=== PATIENT | female | born 1970 | race African-American/Black ===

== ENCOUNTER 2016-06-27 10:57 | Emergency (ER) | payer MEDICAID, OTHER ==
[~2016-06-27] VITALS: Ht 167.6 cm; Wt 82.1 kg
[~2016-06-27 10:57] MED LIST: LISI10TA6; METF-312
[2016-06-27 11:27] VITALS: BP 164/78
== END 2016-06-27 13:25 | disposition left against medical advice (07) ==
LOC: ER 10:57
DX: R10.9 Unspecified abdominal pain (principal); Z53.21 Procedure and treatment not carried out due to patient leaving prior to being seen by health care provider

== ENCOUNTER 2017-05-25 16:02 | Emergency (ER) | payer MEDICAID ==
[~2017-05-25] VITALS: Ht 167.6 cm; Wt 95.3 kg
[~2017-05-25 16:02] MED LIST changes: -METF-312; +METF-370
[2017-05-25 17:13] LABS: BUN/Creatinine Ratio 14.7; Potassium 4.3 mmol/L (3.5-5.1)
[2017-05-25 17:14] LABS: Albumin 2.5 g/dL (3.4-5.0); Calcium 8.6 mg/dL (8.5-10.1)
[2017-05-25 17:15] LABS: Bilirubin, Total 0.2 mg/dL (0.2-1.0); Total Protein 7.2 g/dL (6.4-8.2)
[2017-05-25 17:22] LABS: Basophils # (auto) 0.1 uL; Eosinophils # (auto) 0.1 uL; Hemoglobin 9.2 g/dL (12.2-16.2); Mean Corpuscular Hemoglobin 19.2 pg (28.0-32.0); Monocytes # (auto) 0.6 uL
[2017-05-25 17:23] LABS: Basophils % (auto) 0.6 % (0.0-2.0); Eosinophils % (auto) 1.6 % (0.0-7.0); Hematocrit 29.6 % (36.0-46.0); Lymphocytes # (auto) 2.5 uL; Lymphocytes % (auto) 28.5 % (10.0-50.0); Monocytes % (auto) 6.9 % (0.0-12.0); Neutrophils # (auto) 5.6 uL; Neutrophils % (auto) 62.4 % (37.0-80.0); Nucleated Red Blood Cells % 0.1 %; Platelet Count (auto) 432 10^3/uL (140-450); Red Blood Cells 4.77 10^6/uL (4.0-5.20); White Blood Cell 8.9 10^3/uL (4.4-10.8)
[2017-05-25 17:31] LABS: Red Cell Distribution Width 33.1 % (11.8-14.3)
[2017-05-25] MEDS ORDERED: InsuLIN REG 1unit/0.01ml Soln (100units/ml) IV ONE (21:30)
[2017-05-25] MEDS ORDERED: SODIUM CHLORIDE 0.9% 1,000 ML IV ONE (21:30)
[2017-05-25 23:15] VITALS: BP 150/80
== END 2017-05-26 01:27 | disposition home or self-care (01) ==
LOC: ER 16:02
DX: E11.42 Type 2 diabetes mellitus with diabetic polyneuropathy (principal); E11.65 Type 2 diabetes mellitus with hyperglycemia; M79.605 Pain in left leg; M79.604 Pain in right leg; Z79.899 Other long term (current) drug therapy; I10 Essential (primary) hypertension
CPT/HCPCS: 36415; 71045; 80053; 82962; 83735; 83880; 84443; 84484; 84702; 85025; 93005; 96361; 96374; 99285; J1815; J7030

== ENCOUNTER 2017-12-31 10:58 | Emergency (ER) | payer MEDICAID ==
[~2017-12-31] VITALS: Ht 167.6 cm; Wt 89.8 kg
[2017-12-31 11:04] VITALS: BP 181/91
[2017-12-31] MEDS ORDERED: KETOROLAC TROMETH 60MG/2ML VIAL IM ONE (13:30)
== END 2017-12-31 13:50 | disposition home or self-care (01) ==
LOC: ER 10:58
DX: G44.209 Tension-type headache, unspecified, not intractable (principal); E11.9 Type 2 diabetes mellitus without complications; I10 Essential (primary) hypertension
CPT/HCPCS: 70450; 96372; 99284; J1885

== ENCOUNTER 2020-09-06 18:43 | Emergency (ER) | payer MEDICAID ==
[~2020-09-06] VITALS: Ht 167.6 cm; Wt 87.1 kg
[~2020-09-06 18:43] MED LIST changes: +LISI-716; -LISI10TA6
[2020-09-06 20:46] VITALS: BP 143/70
[2020-09-06] MEDS ORDERED: NEOMYCIN-BACITRACIN-POLYM UNITDOSE PKG TOP OINT TOP ONE (21:30)
[2020-09-06] MEDS ORDERED: TETANUS-DIPTH-ACEL PERTUSSIS 0.5ML SYR Tdap IM ONE (21:30)
[2020-09-06] MEDS ORDERED: LIDOCAINE 1% HCL (LOCAL ANESTH.) INJ 20ML MDV ONE (21:38)
[2020-09-06] MEDS ORDERED: LIDOCAINE 1% HCL (LOCAL ANESTH.) INJ 20ML MDV ID ONE (21:45)
== END 2020-09-06 22:15 | disposition home or self-care (01) ==
LOC: ER 18:43
DX: S61.012A Laceration without foreign body of left thumb without damage to nail, initial encounter (principal); E11.9 Type 2 diabetes mellitus without complications; I10 Essential (primary) hypertension; Z79.899 Other long term (current) drug therapy; W26.8XXA Contact with other sharp object(s), not elsewhere classified, initial encounter; Y93.89 Activity, other specified; Y92.89 Other specified places as the place of occurrence of the external cause; Y99.8 Other external cause status
CPT/HCPCS: 12002; 90471; 90715; 99283; J2001

== ENCOUNTER 2020-09-13 14:00 | Emergency (ER) | payer MEDICAID ==
[~2020-09-13] VITALS: Ht 167.6 cm; Wt 88.9 kg
[2020-09-13 14:04] VITALS: BP 122/68
== END 2020-09-13 15:30 | disposition left against medical advice (07) ==
LOC: ER 14:00
DX: Z48.01 Encounter for change or removal of surgical wound dressing (principal); Z53.21 Procedure and treatment not carried out due to patient leaving prior to being seen by health care provider

== ENCOUNTER 2023-11-13 14:43 | Inpatient (IN) | payer MEDICAID, OTHER ==
[~2023-11-13] VITALS: Ht 165.1 cm; Wt 95.3 kg
[~2023-11-13 14:43] MED LIST changes: -LISI-716; +LISI10TA34
[2023-11-13 16:00] VITALS: PULSE 76; RESP 19; O2SAT 96
[2023-11-13 16:02] LABS: Eosinophils # (auto) 0.1 10 ^3/uL (0-0.8); Nucleated Red Blood Cells % 0.1 %; White Blood Cell 5.7 10^3/uL (4.4-10.8)
[2023-11-13 16:04] LABS: Basophils # (auto) 0 10 ^3/uL (0-0.2); Basophils % (auto) 0.5 % (0.0-2.0); Eosinophils % (auto) 1.7 % (0.0-7.0); Lymphocytes # (auto) 0.4 10 ^3/uL (0.4-5.4); Lymphocytes % (auto) 6.8 % (10.0-50.0); Mean Corpuscular Hemoglobin 24.8 pg (28.0-32.0); Mean Corpuscular Hgb Conc. 32.1 g/dL (32.0-36.0); Mean Corpuscular Volume 77.2 fL (80.0-100.0); Monocytes # (auto) 0.5 10 ^3/uL (0-1.3); Monocytes % (auto) 8.9 % (0.0-12.0); Neutrophils # (auto) 4.7 10 ^3/uL (1.6-8.6); Neutrophils % (auto) 82.1 % (37.0-80.0); Platelet Count (auto) 254 10^3/uL (140-450); Red Blood Cells 3.24 10^6/uL (4.0-5.20); Red Cell Distribution Width 17.1 % (11.8-14.3)
[2023-11-13 16:26] LABS: Alanine Aminotransferase 16 U/L (7-40); Albumin 3.2 g/dL (3.2-4.8); Alkaline Phosphatase 63 U/L (46-116); Anion Gap 15 (5-15); Aspartate Aminotransferase 20 U/L (13-40); BUN/Creatinine Ratio 6.3 (10.0-20.0); Bilirubin, Total 0.2 mg/dL (0.2-1.0); Blood Urea Nitrogen 66 mg/dL (9-23); Calcium 7.1 mg/dL (8.7-10.4); Carbon Dioxide 13 mmol/L (20-30); Chloride 112 mmol/L (98-107); Glucose 58 mg/dL (74-106); Potassium 4.5 mmol/L (3.5-5.1); Sodium 140 mmol/L (136-145); Total Protein 5.5 g/dL (5.7-8.2)
[2023-11-13] MEDS: hydrALAZINE HCL 20 MG/ML VL IV ONE (17:02)
[2023-11-13] MEDS: ONDANSETRON HCL 4 MG/2 ML VIAL IV ONE (17:04)
[2023-11-13] MEDS: MORPHINE SULFATE 4 MG/ML SYR/VIAL IV ONE (17:04)
[2023-11-13] MEDS: DEXTROSE (50%) 50ML SYRG IV ONE (18:34)
[2023-11-13] MEDS: ASPirin 325 MG TAB PO ONE (19:51)
[2023-11-13 19:57] VITALS: PULSE 74; RESP 20; O2SAT 94
[2023-11-13] MEDS: ACCU-CHEK COMFORT CURVE STRIP VI SCH (22:00)
[2023-11-13] MEDS: InsuLIN REG 1unit/0.01ml Soln (100units/ml) SC SCH (22:00)
[2023-11-13] MEDS: ATORVASTATIN 20 MG TAB PO SCH (22:33)
[2023-11-14] VITALS (7 sets, daily range): BP systolic 145–159; BP diastolic 52–86; PULSE 58–95; RESP 16–20; TEMP 98.3–98.8; O2SAT 94–99
[2023-11-14] MEDS: DEXTROSE (50%) 50ML SYRG IV PRN (02:09)
[2023-11-14] MEDS ORDERED: GLUC0.8I2 IJ (05:50)
[2023-11-14] MEDS ORDERED: METH5TAB98 PO (05:50)
[2023-11-14] MEDS ORDERED: ERTU5TAB PO (05:50)
[2023-11-14 05:53] LABS: Anion Gap 12 (5-15); Calcium 6.1 mg/dL (8.7-10.4); Carbon Dioxide 12 mmol/L (20-30); Chloride 116 mmol/L (98-107); Potassium 4.2 mmol/L (3.5-5.1); Sodium 140 mmol/L (136-145)
[2023-11-14 05:59] LABS: BUN/Creatinine Ratio 4.6 (10.0-20.0); Glucose 68 mg/dL (74-106)
[2023-11-14 06:38] LABS: Blood Urea Nitrogen 45 mg/dL (9-23)
[2023-11-14] MEDS: ASPirin 81 mg TAB PO SCH (11:09)
[2023-11-14] MEDS: amLODIPine BESYLATE 5 MG TAB PO SCH (11:10)
[2023-11-14] MEDS: ATENOLOL 25 MG TAB PO SCH (11:11)
[2023-11-14] MEDS: methIMAzole 5 MG TAB PO SCH (12:51)
[2023-11-14] MEDS: FUROSEMIDE 40 MG/4 ML VIAL IV ONE (12:52)
[2023-11-14 14:21] LABS: Magnesium 1.6 mg/dL (1.6-2.6)
[2023-11-14 14:22] LABS: Phosphorus 7.7 mg/dL (2.4-5.1)
[2023-11-14 14:49] LABS: INR 0.96 (0.9-1.15); Prothrombin Time 10.2 sec (9.3-11.8)
[2023-11-14] MEDS: HYDROcodone-ACET 5/325MG TAB PO PRN (20:54)
[2023-11-15 02:22] VITALS: BP 103/47; PULSE 60; RESP 16; TEMP 97.8; O2SAT 90
[2023-11-15 05:00] VITALS: BP 146/62; PULSE 60; RESP 20; TEMP 98.6; O2SAT 99
[2023-11-15 07:29] LABS: Alanine Aminotransferase 14 U/L (7-40); Albumin 2.8 g/dL (3.2-4.8); Alkaline Phosphatase 56 U/L (46-116); Anion Gap 12 (5-15); Aspartate Aminotransferase 15 U/L (13-40); BUN/Creatinine Ratio 5.6 (10.0-20.0); Bilirubin, Total < 0.2 mg/dL (0.2-1.0); Calcium 6.2 mg/dL (8.7-10.4); Carbon Dioxide 15 mmol/L (20-30); Chloride 113 mmol/L (98-107); Magnesium 1.7 mg/dL (1.6-2.6); Potassium 4.8 mmol/L (3.5-5.1); Sodium 140 mmol/L (136-145); Total Protein 4.9 g/dL (5.7-8.2)
[2023-11-15 07:35] LABS: Blood Urea Nitrogen 64 mg/dL (9-23)
[2023-11-15 07:38] LABS: Glucose 49 mg/dL (74-106)
[2023-11-15 08:04] LABS: Hemoglobin 7.2 g/dL (12.2-16.2); Red Blood Cells 2.89 10^6/uL (4.0-5.20)
[2023-11-15 08:06] LABS: Hematocrit 22.2 % (36.0-46.0); Mean Corpuscular Hgb Conc. 32.6 g/dL (32.0-36.0); Mean Corpuscular Volume 76.8 fL (80.0-100.0); Platelet Count (auto) 202 10^3/uL (140-450); White Blood Cell 4.9 10^3/uL (4.4-10.8)
[2023-11-15 08:10] LABS: Band Neutrophils % (manual) 0; Basophils % (manual) 0 (0.0-2.0); Blast Cells 0; Metamyelocytes % 0; Myelocytes % 0; Promyelocytes % 0; Reactive Lymphocytes 0
[2023-11-15 08:45] LABS: Eosinophils % (manual) 2 (0-7); Lymphocytes % (manual) 23 (10.0-50.0); Monocytes % (manual) 7 (0-12)
[2023-11-15 08:46] LABS: Anisocytosis Slight; Macrocytosis Slight; Ovalocytes FEW; Platelet Estimate Adequate
[2023-11-15] MEDS: CALCIUM ACETATE 667 MG CAP PO SCH ×2 (12:38→17:40)
[2023-11-15 12:59] LABS: Urine Bacteria None Seen /hpf (None Seen); Urine WBC None Seen /hpf (0 - 5)
[2023-11-15 13:00] VITALS: BP 142/59; PULSE 65; RESP 19; TEMP 99; O2SAT 94
[2023-11-15 13:20] LABS: Urine Blood 1+ /uL (Negative); Urine Color Light-Yellow (Yellow); Urine Hyaline Cast FEW /lpf (0 - 2); Urine Protein, UAD 3+ (Negative); Urine Specific Gravity 1.018 (1.001-1.035); Urine Urobilinogen Normal (Negative); Urine pH 6.5 (5.0-9.0)
[2023-11-15 13:23] LABS: Urine Clarity CLEAR (Clear)
[2023-11-15 13:32] LABS: Creatinine, Urine 110.76 mg/dL (30.0-125.0)
[2023-11-15 13:35] LABS: Protein, Urine 1410.7 mg/dL (0.0-11.9); Urine Protein/Creatinine Ratio 12.74
[2023-11-15 17:00] VITALS: BP 132/54; PULSE 61; RESP 20; O2SAT 95
[2023-11-15 20:00] VITALS: PULSE 59
[2023-11-15 21:00] VITALS: BP 132/45; PULSE 61; RESP 20; TEMP 98.2; O2SAT 96
[2023-11-16] VITALS (8 sets, daily range): BP systolic 128–147; BP diastolic 49–68; PULSE 56–65; RESP 16–20; TEMP 97.6–98.1; O2SAT 94–99
[2023-11-16 06:41] LABS: Alanine Aminotransferase 15 U/L (7-40); Alkaline Phosphatase 59 U/L (46-116); Anion Gap 13 (5-15); BUN/Creatinine Ratio 5.4 (10.0-20.0); Blood Urea Nitrogen 64 mg/dL (9-23); Calcium 6.4 mg/dL (8.7-10.4); Carbon Dioxide 14 mmol/L (20-30); Chloride 113 mmol/L (98-107); Glucose 67 mg/dL (74-106); Magnesium 1.7 mg/dL (1.6-2.6); Potassium 4.9 mmol/L (3.5-5.1); Sodium 140 mmol/L (136-145)
[2023-11-16 06:42] LABS: Albumin 2.9 g/dL (3.2-4.8); Aspartate Aminotransferase 15 U/L (13-40); Bilirubin, Total 0.2 mg/dL (0.2-1.0); Total Protein 5.2 g/dL (5.7-8.2)
[2023-11-16 07:14] LABS: Basophils # (auto) 0.1 10 ^3/uL (0-0.2); Monocytes # (auto) 0.5 10 ^3/uL (0-1.3)
[2023-11-16 07:16] LABS: Basophils % (auto) 1.3 % (0.0-2.0); Eosinophils # (auto) 0.3 10 ^3/uL (0-0.8); Eosinophils % (auto) 5.7 % (0.0-7.0); Hematocrit 23.6 % (36.0-46.0); Hemoglobin 7.7 g/dL (12.2-16.2); Lymphocytes # (auto) 0.6 10 ^3/uL (0.4-5.4); Lymphocytes % (auto) 11.1 % (10.0-50.0); Mean Corpuscular Hemoglobin 25.2 pg (28.0-32.0); Mean Corpuscular Hgb Conc. 32.4 g/dL (32.0-36.0); Mean Corpuscular Volume 77.6 fL (80.0-100.0); Monocytes % (auto) 9.9 % (0.0-12.0); Neutrophils # (auto) 3.9 10 ^3/uL (1.6-8.6); Nucleated Red Blood Cells % 0.2 %; Platelet Count (auto) 230 10^3/uL (140-450); Red Blood Cells 3.04 10^6/uL (4.0-5.20); Red Cell Distribution Width 17.5 % (11.8-14.3); White Blood Cell 5.4 10^3/uL (4.4-10.8)
[2023-11-16 08:58] LABS: Hepatitis B Surface Antigen Negative (Negative)
[2023-11-16 09:19] LABS: Hepatitis C Antibody Negative (Negative)
[2023-11-16] MEDS: IRON SUCROSE COMPLEX 100 ML IV SCH (11:24)
[2023-11-17] VITALS (12 sets, daily range): BP systolic 124–161; BP diastolic 54–82; PULSE 57–63; RESP 11–18; TEMP 97–98.5; O2SAT 95–100
[2023-11-17] MEDS: hydrALAZINE HCL 20 MG/ML VL IV PRN (05:28)
[2023-11-17 06:37] LABS: Alanine Aminotransferase 14 U/L (7-40); Albumin 2.8 g/dL (3.2-4.8); Alkaline Phosphatase 60 U/L (46-116); Anion Gap 14 (5-15); Aspartate Aminotransferase 12 U/L (13-40); BUN/Creatinine Ratio 5.3 (10.0-20.0); Blood Urea Nitrogen 65 mg/dL (9-23); Calcium 6.4 mg/dL (8.7-10.4); Carbon Dioxide 14 mmol/L (20-30); Chloride 113 mmol/L (98-107); Glucose 66 mg/dL (74-106); Magnesium 1.8 mg/dL (1.6-2.6); Potassium 5.2 mmol/L (3.5-5.1); Sodium 141 mmol/L (136-145)
[2023-11-17 06:38] LABS: Bilirubin, Total 0.2 mg/dL (0.2-1.0)
[2023-11-17] MEDS: HEPARIN SODIUM (PORCINE) 5000 UNITS/ML 1ML VIAL ONE (13:31)
[2023-11-17] MEDS: fentaNYL CITRATE 100 MCG/2 ML VL ONE (13:31)
[2023-11-17] MEDS: LIDOCAINE 2%HCL (LOCAL ANESTH.) INJ 20ML MDV ONE (13:32)
[2023-11-17] MEDS: MIDAZOLAM HCL 2MG/2ML 2ml VIAL (1mg/ml) ONE (13:32)
[2023-11-17] MEDS: ceFAZolin 1GM/50ML 50 ML IV ONE (13:56)
[2023-11-18] VITALS (8 sets, daily range): BP systolic 114–184; BP diastolic 51–80; PULSE 57–74; RESP 14–20; TEMP 97.1–98.6; O2SAT 95–98
[2023-11-18] MEDS ORDERED: SODIUM CHL 0.9% 1000 ML BAG XX ONE (10:15)
[2023-11-19 05:00] VITALS: BP 141/48; PULSE 64; RESP 20; TEMP 98.4; O2SAT 96
[2023-11-19 08:00] VITALS: PULSE 60; PULSE 64; RESP 16; O2SAT 97
[2023-11-19 11:43] VITALS: BP 151/59; PULSE 65; RESP 18; TEMP 97.8; O2SAT 96
[2023-11-19 17:00] VITALS: BP 149/71; PULSE 66; RESP 95; TEMP 97.9; O2SAT 95
[2023-11-19 20:00] VITALS: PULSE 66; PULSE 67; RESP 17; O2SAT 97
[2023-11-19 21:00] VITALS: BP 152/77; PULSE 66; RESP 17; TEMP 97.7; O2SAT 97
[2023-11-20] VITALS (8 sets, daily range): BP systolic 125–188; BP diastolic 56–81; PULSE 57–98; RESP 16–18; TEMP 97.3–97.8; O2SAT 63–100
[2023-11-20 07:17] LABS: Albumin 2.7 g/dL (3.2-4.8); Alkaline Phosphatase 59 U/L (46-116); Anion Gap 9 (5-15); Aspartate Aminotransferase 15 U/L (13-40); BUN/Creatinine Ratio 3.7 (10.0-20.0); Bilirubin, Total 0.2 mg/dL (0.2-1.0); Blood Urea Nitrogen 38 mg/dL (9-23); Calcium 7.1 mg/dL (8.7-10.4); Carbon Dioxide 16 mmol/L (20-31); Chloride 111 mmol/L (98-107); Glucose 72 mg/dL (74-106); Potassium 4.8 mmol/L (3.5-5.1)
[2023-11-20 07:18] LABS: Total Protein 4.9 g/dL (5.7-8.2)
[2023-11-20 07:24] LABS: Alanine Aminotransferase < 9 U/L (7-40); Sodium 136 mmol/L (136-145)
[2023-11-20 10:07] LABS: Hematocrit 26.5 % (36.0-46.0); Hemoglobin 8.4 g/dL (12.2-16.2); Mean Corpuscular Hemoglobin 24.4 pg (28.0-32.0); Mean Corpuscular Hgb Conc. 31.7 g/dL (32.0-36.0); Mean Corpuscular Volume 77.2 fL (80.0-100.0); Platelet Count (auto) 246 10^3/uL (140-450); Red Blood Cells 3.44 10^6/uL (4.0-5.20); Red Cell Distribution Width 16.9 % (11.8-14.3); White Blood Cell 6.6 10^3/uL (4.4-10.8)
[2023-11-20 10:10] LABS: Basophils % (manual) 0 (0.0-2.0); Blast Cells 0; Metamyelocytes % 0; Myelocytes % 0; Promyelocytes % 0; Reactive Lymphocytes 0
[2023-11-20 11:51] LABS: Band Neutrophils % (manual) 1; Eosinophils % (manual) 2 (0-7); Lymphocytes % (manual) 17 (10.0-50.0); Monocytes % (manual) 9 (0-12); Platelet Estimate Adequate
[2023-11-20 11:52] LABS: Hypochromia Slight
[2023-11-20] MEDS: EPOETIN ALFA-EPBX 10,000 UNIT/1ML VIAL SC ONE (21:18)
[2023-11-21] VITALS (8 sets, daily range): BP systolic 119–169; BP diastolic 58–86; PULSE 62–98; RESP 18–21; TEMP 97.6–98.7; O2SAT 88–100
[2023-11-22] VITALS (8 sets, daily range): BP systolic 112–162; BP diastolic 56–85; PULSE 57–75; RESP 16–20; TEMP 97.2–98.2; O2SAT 94–99
[2023-11-22 08:22] LABS: Alanine Aminotransferase 10 U/L (7-40); Albumin 3.3 g/dL (3.2-4.8); Alkaline Phosphatase 69 U/L (46-116); Anion Gap 12 (5-15); Aspartate Aminotransferase 21 U/L (13-40); BUN/Creatinine Ratio 3.7 (10.0-20.0); Blood Urea Nitrogen 28 mg/dL (9-23); Calcium 7.9 mg/dL (8.7-10.4); Carbon Dioxide 22 mmol/L (20-31); Chloride 104 mmol/L (98-107); Glucose 85 mg/dL (74-106); Potassium 4.3 mmol/L (3.5-5.1); Sodium 138 mmol/L (136-145)
[2023-11-22 08:23] LABS: Bilirubin, Total 0.2 mg/dL (0.2-1.0); Total Protein 5.8 g/dL (5.7-8.2)
[2023-11-23] VITALS (8 sets, daily range): BP systolic 139–165; BP diastolic 52–70; PULSE 58–65; RESP 16–20; TEMP 97.2–98.3; O2SAT 96–99
[2023-11-23 07:10] LABS: Eosinophils # (auto) 0.2 10 ^3/uL (0-0.8); Hemoglobin 7.4 g/dL (12.2-16.2); Monocytes # (auto) 0.6 10 ^3/uL (0-1.3); Nucleated Red Blood Cells % 0.7 %
[2023-11-23 07:17] LABS: Basophils # (auto) 0.1 10 ^3/uL (0-0.2); Basophils % (auto) 0.9 % (0.0-2.0); Hematocrit 22.8 % (36.0-46.0); Lymphocytes % (auto) 32.6 % (10.0-50.0); Mean Corpuscular Hemoglobin 25.1 pg (28.0-32.0); Mean Corpuscular Hgb Conc. 32.2 g/dL (32.0-36.0); Mean Corpuscular Volume 77.8 fL (80.0-100.0); Monocytes % (auto) 9.5 % (0.0-12.0); Neutrophils # (auto) 3.2 10 ^3/uL (1.6-8.6); Platelet Count (auto) 189 10^3/uL (140-450); Red Blood Cells 2.93 10^6/uL (4.0-5.20); Red Cell Distribution Width 16.6 % (11.8-14.3)
[2023-11-23 07:27] LABS: Calcium 7.4 mg/dL (8.7-10.4); Chloride 106 mmol/L (98-107); Potassium 3.8 mmol/L (3.5-5.1); Sodium 138 mmol/L (136-145)
[2023-11-23 07:28] LABS: Anion Gap 8 (5-15); Carbon Dioxide 24 mmol/L (20-31)
[2023-11-23 07:33] LABS: BUN/Creatinine Ratio 3.9 (10.0-20.0); Blood Urea Nitrogen 33 mg/dL (9-23); Glucose 108 mg/dL (74-106)
[2023-11-23] MEDS: IRON SUCROSE COMPLEX 100 ML IV SCH (16:51)
[2023-11-23] MEDS: FUROSEMIDE 20 MG TAB PO SCH (16:58)
[2023-11-24] VITALS (9 sets, daily range): BP systolic 141–185; BP diastolic 34–87; PULSE 58–68; RESP 16–20; TEMP 97.7–98; O2SAT 96–99
[2023-11-24 05:58] LABS: Hematocrit 23.1 % (36.0-46.0); Hemoglobin 7.3 g/dL (12.2-16.2)
[2023-11-24] MEDS: SODIUM CHL 0.9% 1000 ML BAG XX ONE (09:10)
[2023-11-24] MEDS: EPOETIN ALFA-EPBX 10,000 UNIT/1ML VIAL SC ONE (21:32)
[2023-11-25] VITALS (8 sets, daily range): BP systolic 134–158; BP diastolic 38–67; PULSE 60–65; RESP 16–18; TEMP 97.6–98.1; O2SAT 94–99
[2023-11-26] VITALS (7 sets, daily range): BP systolic 137–151; BP diastolic 44–94; PULSE 63–71; RESP 18–20; TEMP 97.5–98.1; O2SAT 93–96
[2023-11-26 06:20] LABS: Chloride 105 mmol/L (98-107); Potassium 3.8 mmol/L (3.5-5.1); Sodium 140 mmol/L (136-145)
[2023-11-26 06:21] LABS: Anion Gap 10 (5-15); Calcium 7.9 mg/dL (8.7-10.4); Carbon Dioxide 25 mmol/L (20-31)
[2023-11-26 06:26] LABS: BUN/Creatinine Ratio 3.1 (10.0-20.0); Blood Urea Nitrogen 22 mg/dL (9-23); Glucose 91 mg/dL (74-106)
[2023-11-26] MEDS: SODIUM CHL 0.9% 1000 ML BAG XX ONE (06:41)
[2023-11-26 09:14] LABS: Hepatitis B Surface Antigen Negative (Negative)
[2023-11-26 09:36] LABS: Hepatitis A Ab IgM Negative; Hepatitis B Core IgM Negative
[2023-11-26 09:37] LABS: Hepatitis C Antibody Negative (Negative)
[2023-11-26] MEDS: EPOETIN ALFA-EPBX 10,000 UNIT/1ML VIAL SC ONE ×2 (21:00→21:12)
[2023-11-27] VITALS (7 sets, daily range): BP systolic 132–166; BP diastolic 50–76; PULSE 60–65; RESP 18–20; TEMP 97.6–98.1; O2SAT 95–99
[2023-11-27] MEDS: CALCIUM ACETATE 667 MG CAP PO SCH (08:30)
[2023-11-27] MEDS: ERGOCALCIFEROL 50,000 UNIT(1.25MG) CAP PO SCH (12:43)
[2023-11-27] MEDS: CALCITRIOL 0.25 MCG CAP PO SCH (12:43)
[2023-11-27] MEDS ORDERED: METH5TAB98 PO (15:17)
[2023-11-27] MEDS ORDERED: ASPI-325 PO (15:17)
[2023-11-27] MEDS ORDERED: ATEN25TA PO (15:17)
[2023-11-27] MEDS ORDERED: ATOR20TA50 PO (15:17)
[2023-11-27] MEDS ORDERED: AML5T PO (15:17)
[2023-11-27] MEDS ORDERED: CALC667C PO (15:19)
[2023-11-28 01:00] VITALS: BP 147/63; PULSE 60; RESP 18; TEMP 98.1; O2SAT 98
[2023-11-28 05:00] VITALS: BP 163/79; PULSE 62; RESP 18; TEMP 97.8; O2SAT 97
[2023-11-28] MEDS ORDERED: SODIUM CHL 0.9% 1000 ML BAG XX ONE (07:00)
[2023-11-28 08:40] VITALS: BP 162/64; PULSE 65; RESP 20; TEMP 98.4; O2SAT 100
[2023-11-28 12:40] VITALS: BP 137/60; PULSE 56; RESP 18; TEMP 97.6; O2SAT 94
[2023-11-28 15:00] VITALS: BP 150/46; PULSE 61; RESP 18; TEMP 98.3; O2SAT 95
[2023-11-28] MEDS: SODIUM FERR GLUC 62.5MG/5ML 110 ML IV SCH (17:57)
[2023-11-28 21:25] VITALS: BP 151/55; PULSE 63; RESP 14; TEMP 97.8; O2SAT 97
[2023-11-29 00:23] VITALS: BP 165/69; PULSE 58; RESP 14; TEMP 98; O2SAT 98
[2023-11-29 04:49] VITALS: BP_SYST 117; BP_SYST 152; BP_DIAS 61; BP_DIAS 82; PULSE 63; PULSE 68; RESP 14; RESP 15; TEMP 97.8; TEMP 98.3; O2SAT 95; O2SAT 96
[2023-11-29] MEDS: EPOETIN ALFA-EPBX 10,000 UNIT/1ML VIAL SC ONE (06:11)
[2023-11-29 09:00] VITALS: BP 175/69; PULSE 70; RESP 18; TEMP 98.6; O2SAT 96
[2023-11-29 13:00] VITALS: BP 157/71; PULSE 74; RESP 20; TEMP 98.9; O2SAT 96
[2023-11-29] MEDS: HYDROcodone-ACET 10/325MG TAB PO PRN (13:40)
[2023-11-29 16:43] VITALS: BP 152/78; PULSE 72; RESP 18; TEMP 98.7; O2SAT 100
[2023-11-29] MEDS: ONDANSETRON HCL 4 MG/2 ML VIAL IV PRN (17:14)
[2023-11-29 21:00] VITALS: BP 135/65; PULSE 75; RESP 18; TEMP 98; O2SAT 98
[2023-11-30 01:00] VITALS: BP_SYST 136; BP_SYST 140; BP_DIAS 57; BP_DIAS 65; PULSE 65; PULSE 75; RESP 18; TEMP 98; TEMP 99.3; O2SAT 97; O2SAT 98
[2023-11-30 05:00] VITALS: BP 132/53; PULSE 70; RESP 17; TEMP 99.3; O2SAT 98
[2023-11-30 08:00] VITALS: BP 161/63; PULSE 71; RESP 20; TEMP 97.8; O2SAT 97
[2023-11-30 12:00] VITALS: BP 124/56; PULSE 61; RESP 18; TEMP 98; O2SAT 95
[2023-11-30 13:46] VITALS: BP 161/63; PULSE 70; TEMP 36.6
[2023-12-01 08:06] LABS: Complement C3 84 mg/dL (82-167)
[2023-12-01 13:07] LABS: Anti-Centromere B Antibody <0.2 AI (0.0-0.9); Anti-Jo-1 Antibody <0.2 AI (0.0-0.9); Anti-dsDNA Antibody <1 IU/mL (0-9); Antichromatin Antibody <0.2 AI (0.0-0.9); Antiscleroderma-70 Antibody <0.2 AI (0.0-0.9); RNP Antibody <0.2 AI (0.0-0.9); Sjogren's Anti-SS-A Antibody <0.2 AI (0.0-0.9); Sjogren's Anti-SS-B Antibody <0.2 AI (0.0-0.9); Smith Antibody <0.2 AI (0.0-0.9)
== END 2023-11-30 15:30 | disposition home or self-care (01) | DRG 469 ==
LOC: ER 14:43 → TELE-WESTW 21:15 → TELE 21:15 → TELE-WESTW 11-14 05:35 → WEST WING 11-27 00:05
PROVIDERS: ADMIT Internal Medicine; ATTEND Nurse Practitioner Acute Care
PROC: 0JH63XZ Insertion of Tunneled Vascular Access Device into Chest Subcutaneous Tissue and Fascia, Percutaneous Approach (ICD-10-PCS; principal; 2023-11-17)
PROC: 02H633Z Insertion of Infusion Device into Right Atrium, Percutaneous Approach (ICD-10-PCS; 2023-11-17)
PROC: B5181ZA Fluoroscopy of Superior Vena Cava using Low Osmolar Contrast, Guidance (ICD-10-PCS; 2023-11-17)
PROC: B548ZZA Ultrasonography of Superior Vena Cava, Guidance (ICD-10-PCS; 2023-11-17)
PROC: 5A1D70Z Performance of Urinary Filtration, Intermittent, Less than 6 Hours Per Day (ICD-10-PCS; 2023-11-18)
PROC: 5A1D70Z Performance of Urinary Filtration, Intermittent, Less than 6 Hours Per Day (ICD-10-PCS; 2023-11-20)
PROC: 5A1D70Z Performance of Urinary Filtration, Intermittent, Less than 6 Hours Per Day (ICD-10-PCS; 2023-11-24)
PROC: 5A1D70Z Performance of Urinary Filtration, Intermittent, Less than 6 Hours Per Day (ICD-10-PCS; 2023-11-26)
PROC: 5A1D70Z Performance of Urinary Filtration, Intermittent, Less than 6 Hours Per Day (ICD-10-PCS; 2023-11-28)
DX: N17.9 Acute kidney failure, unspecified (principal); E11.649 Type 2 diabetes mellitus with hypoglycemia without coma; E44.1 Mild protein-calorie malnutrition; I12.0 Hypertensive chronic kidney disease with stage 5 chronic kidney disease or end stage renal disease; D63.1 Anemia in chronic kidney disease; E83.39 Other disorders of phosphorus metabolism; E83.51 Hypocalcemia; E05.00 Thyrotoxicosis with diffuse goiter without thyrotoxic crisis or storm; N18.6 End stage renal disease; E11.22 Type 2 diabetes mellitus with diabetic chronic kidney disease; N20.0 Calculus of kidney; D50.9 Iron deficiency anemia, unspecified; E66.01 Morbid (severe) obesity due to excess calories; Z99.2 Dependence on renal dialysis; Z79.899 Other long term (current) drug therapy; Z79.4 Long term (current) use of insulin; R60.1 Generalized edema; Z68.36 Body mass index [BMI] 36.0-36.9, adult
CPT/HCPCS: 36415; 36558; 74176; 76775; 77001; 80048; 80053; 80074; 81001; 82306; 82570; 82728; 82962; 83036; 83516; 83540; 83550; 83690; 83735; 83880; 83970; 84100; 84156; 84300; 84443; 84484; 85007; 85014; 85018; 85025; 85027; 85610; 86160; 86225; 86235; 86803; 87340; 90935; 93005; 93306; 93970; 96374; 96375; 99152; C1894; G0378; J1642; J1756; J1815; J2250; J2405

== ENCOUNTER 2024-07-23 14:53 | Inpatient (IN) | payer MEDICARE, MEDICAID, OTHER ==
[~2024-07-23] VITALS: Ht 167.6 cm; Wt 93.3 kg
[~2024-07-23 14:53] MED LIST changes: +AML5T PO; +ASPI-325 PO; +ATEN25TA PO; +ATOR20TA50 PO; +CALC667C PO; +ERTU5TAB PO; +GLUC0.8I2 IJ; +METH5TAB98 PO
[2024-07-23 16:00] VITALS: PULSE 73; RESP 14; O2SAT 96
[2024-07-23 16:23] LABS: Eosinophils # (auto) 0 10 ^3/uL (0-0.8); Monocytes # (auto) 0.3 10 ^3/uL (0-1.3); White Blood Cell 6.7 10^3/uL (4.4-10.8)
[2024-07-23 16:25] LABS: Basophils # (auto) 0 10 ^3/uL (0-0.2); Basophils % (auto) 0.6 % (0.0-2.0); Eosinophils % (auto) 0.5 % (0.0-7.0); Hematocrit 39.8 % (36.0-46.0); Hemoglobin 12.5 g/dL (12.2-16.2); Lymphocytes # (auto) 0.6 10 ^3/uL (0.4-5.4); Lymphocytes % (auto) 9.3 % (10.0-50.0); Mean Corpuscular Hemoglobin 25.9 pg (28.0-32.0); Mean Corpuscular Hgb Conc. 31.4 g/dL (32.0-36.0); Mean Corpuscular Volume 82.6 fL (80.0-100.0); Monocytes % (auto) 4.9 % (0.0-12.0); Neutrophils # (auto) 5.7 10 ^3/uL (1.6-8.6); Neutrophils % (auto) 84.7 % (37.0-80.0); Platelet Count (auto) 249 10^3/uL (140-450); Red Blood Cells 4.83 10^6/uL (4.0-5.20); Red Cell Distribution Width 18.9 % (11.8-14.3)
[2024-07-23 16:40] LABS: Alanine Aminotransferase 32 U/L (7-40); Albumin 4.4 g/dL (3.2-4.8); Anion Gap 11 (5-15); Aspartate Aminotransferase 27 U/L (13-40); BUN/Creatinine Ratio 5.7 (10.0-20.0); Carbon Dioxide 22 mmol/L (20-31); Chloride 102 mmol/L (98-107); Total Protein 7.4 g/dL (5.7-8.2)
[2024-07-23 16:44] LABS: Alkaline Phosphatase 127 U/L (46-116); Bilirubin, Total < 0.2 mg/dL (0.2-1.0); Blood Urea Nitrogen 65 mg/dL (9-23); Calcium 8.5 mg/dL (8.7-10.4); Glucose 183 mg/dL (74-106); Sodium 135 mmol/L (136-145)
[2024-07-23 16:50] LABS: Potassium 7.1 mmol/L (3.5-5.1)
--- NOTE | 2024-07-23 16:50 | DVH ---
CHEST RADIOGRAPH Indication: sob Technique: Single frontal view of the chest was obtained Comparison: None FINDINGS: Lines and Tubes: Hemodialysis catheter in place in the right internal jugular vein with the tip in th e right atrium. Lungs: No focal consolidation. Pleura: No effusion. No pneumothorax. Cardiomediastinal contours: Unremarkable Bones: No acute osseous abnormality. IMPRESSION: 1. Hemodialysis catheter in place through the right internal jugular vein with the tip in the right a trium.
[2024-07-23] MEDS: hydrALAZINE HCL 20 MG/ML VL IV ONE (16:53)
--- NOTE | 2024-07-23 17:07 | ED.PDOC ---
HPI Comments This is a 54-year-old female history of chronic renal failure and dialysis presents to the ED via ambulance chief complaint dizziness. Patient states prior to arrival she was getting up to go to dialysis and felt really dizzy and collapsed patient states her called 911. Patient reports dialysis on Wednesdays and Fridays and she missed Thursday due to her sister having seizures and spent some time with her sister. She states she felt weak and sudden onset of dizziness states her blood sugar was 50 at home checked by EMS. She denies dizziness now, reports no chest pain however does note some shortness a breath. Patient was also hypertensive on exam states that she also missed her dosing of her blood pressure medication. Denies headache, slurred speech, numbness or weakness. Chief Complaint: Hypoglycemia Time Seen by MD: 15:12 Primary Care Provider: NO PCP Reviewed Notes: Nurses Notes, Medications, Allergies Allergies: Coded Allergies: NO KNOWN ALLERGIES (Unverified , 03/17/10) Home Meds Active Scripts Calcium Acetate (Phosphate Bin (Calcium Acetate) 667 Mg Cap, 667 MG PO TIDWM for 30 Days, #90 CAP WITH MEALS Prov:LINDA NIELSON NP 11/27/23 Methimazole (Methimazole) 5 Mg Tab, 5 MG PO BID for 30 Days, #60 TAB Prov:LINDA NIELSON NP 11/27/23 Atorvastatin Calcium (ATORVASTATIN CALCIUM) 20 Mg Tab, 10 MG PO HS for 30 Days, #15 TAB 2 Refills Prov:LINDA NIELSON PUBLIC SERVICE OFFICER 11/27/23 Atenolol (Atenolol) 25 Mg Tab, 100 MG PO DAILY for 30 Days, #120 TAB 1 Refill Prov:LINDA NIELSON PUBLIC SERVICE OFFICER 11/27/23 Aspirin (Aspirin Low Dose) 81 Mg Tab, 162 MG PO DAILY for 30 Days, #60 TAB 1 Refill Prov:LINDA NIELSON NP 11/27/23 Amlodipine Besylate (NORVASC TABLET) 5 Mg Tb, 10 MG PO DAILY for 30 Days, #60 TAB 1 Refill Prov:LINDA NIELSON NP 11/27/23 Reported Medications Glucagon Hydrochloride (Glucagon) 1 Mg Inj, 1 MG IJ, INJ 11/14/23 Methimazole (Methimazole) 5 Mg Tab, 5 MG PO, TAB 11/14/23 Ertugliflozin l-Pyroglutamic A (Steglatro) 5 Mg Tab, 5 MG PO, TAB 11/14/23 Metformin Hydrochloride (Metformin Hcl) 500 Mg Tab 03/17/10 Lisinopril (Lisinopril) 10 Mg Tab 03/17/10 Information Source: Patient Past Medical History PAST MEDICAL HISTORY: CKF, DM, HTN Past Medical History (Other): Dialysis Surgical History: Denies all surgeries MD PHYSICIAN DERMATOLOGIST History: No Pertinent MD PHYSICIAN DERMATOLOGIST History Family History Family History: Unknown Social History Smoker: Non-Smoker Alcohol: Denies ETOH Use Drugs: Denies Drug Use Lives In: Home Constitutional: denies: chills, diaphoresis, fatigue, fever, malaise, sweats, weakness, others EENTM: denies: blurred vision, double vision, ear bleeding, ear discharge, ear drainage, ear pain, ear ringing, eye pain, eye redness, hearing loss, mouth pain, mouth swelling, nasal discharge, nose bleeding, nose congestion, nose pain, photophobia, tearing, throat pain, throat swelling, voice changes, others Respiratory: denies: cough, hemoptysis, orthopnea, SOB at rest, shortness of breath, SOB with excertion, stridor, wheezing, others Cardiovascular: reports: dizzy spells; denies: chest pain, diaphoresis, Dyspnea on exertion, edema, irregular heart beat, left arm pain, lightheadedness, palpitations, PND, syncope, others Gastrointestinal: denies: abdomen distended, abdominal pain, blood streaked bowels, constipated, diarrhea, dysphagia, difficulty swallowing, hematemesis, melena, nausea, poor appetite, poor fluid intake, rectal bleeding, rectal pain, vomiting, others Genitourinary: denies: abnormal vagina bleeding, burning, dyspareunia, dysuria, flank pain, frequency, hematuria, incontinence, pain, , vagina discharge, urgency, others Neurological: reports: dizziness, fainting; denies: headache, left sided numbness, left sided weakness, numbness, paresthesia, pre-existing deficit, right sided numbness, right sided weakness, seizure, speech problems, tingling, tremors, weakness, others Musculoskeletal: denies: back pain, gout, joint pain, joint swelling, muscle pain, muscle stiffness, neck pain, others Integumetry: denies: bruises, change in color, change in hair/nails, dryness, laceration, lesions, lumps, rash, wounds, others Allergic/Immunocompromised: denies: Difficulty Healing, Frequent Infections, Hives, Itching, others Hematologic/Lymphatic: denies: anemia, blood clots, easy bleeding, easy bruising, swollen glands, others Endocrine: denies: excessive hunger, excessive sweating, excessive thirst, excessive urination, flushing, intolerance to cold, intolerance to heat, unexplained weight gain, unexplained weight loss, others Psychiatric: reports: anxiety; denies: bipolar disorder, depression, hopeless, panic disorder, schizophrenia, sleepless, suicidal, others Physical Exam General Appearance: No Apparent Distress, Normal HEENT: Normal ENT Inspection, Pharynx Normal, TMs Normal Neck: Full Range of Motion, Non-Tender Respiratory: Chest Non-Tender, Decreased Breath Sounds, No Accessory Muscle Use, No Respiratory Distress Cardiovascular: No Edema, No JVD, No Murmur, No Gallop, Normal Peripheral Pulses, Regular Rate/Rhythm Breast Exam: Deferred Gastrointestinal: No Organomegaly, Non Tender, No Pulsatile Mass, Normal Bowel Sounds, Soft Genitalia: Deferred Pelvic: Deferred Rectal: Deferred Extremities: No calf tenderness, Normal capillary refill, Normal inspection, Normal range of motion, Non-tender, No pedal edema Musculoskeletal : Apperance: Normal Neurologic: Alert, No Motor Deficits, Normal Affect, Normal Mood, No Sensory Deficits Cerebellar Function: Normal Reflexes: Normal Skin: Dry, Normal Color, Warm Lymphatic: No Adenopathy Was a procedure done? Was a procedure done?: No CP Differential Dx Differential Diagnosis: Electrolyte Disorder, Heart Failure, Hypoxia, Pulmonary Embolus, Renal Failure Differential Diagnosis: CHF, HTN Accelerated, HTN Encephalopathy X-Ray, Labs, Meds, VS Vital Signs Date Time Temp Pulse Resp B/P (MAP) Pulse Ox O2 Delivery O2 Flow Rate FiO2 07/23/24 21:30 131/58 07/23/24 19:30 97.5 90 16 175/58 (97) 99 97.5 07/23/24 19:30 90 16 99 Room Air* 0 21 07/23/24 17:39 97.6 71 18 171/78 (109) 96 97.6 07/23/24 17:20 18 96 Nasal Cannula* 1 24 07/23/24 16:53 191/83 07/23/24 16:00 73 14 188/101 (130) 96 07/23/24 16:00 73 14 96 Room Air* 0 21 07/23/24 16:00 72 07/23/24 15:12 70 Lab Test 07/23/24 21:53 07/23/24 20:55 07/23/24 20:54 07/23/24 20:12 Range/Units POC Glucose 197 H 145 H 25 *L 70-106 mg/dl Potassium Level 5.8 *H 3.5-5.1 mmol/L Test 07/23/24 19:05 07/23/24 17:54 07/23/24 17:06 07/23/24 16:06 Range/Units Troponin I High Sensitivity 15 16 15 </=34 ng/L POC Glucose 135 H 70-106 mg/dl White Blood Count 6.7 4.4-10.8 10^3/uL Red Blood Count 4.83 4.0-5.20 10^6/uL Hemoglobin 12.5 12.2-16.2 g/dL Hematocrit 39.8 36.0-46.0 % Mean Corpuscular Volume 82.6 80.0-100.0 fL Mean Corpuscular Hemoglobin 25.9 L 28.0-32.0 pg Mean Corpuscular Hemoglobin Concent 31.4 L 32.0-36.0 g/dL Red Cell Distribution Width 18.9 H 11.8-14.3 % Platelet Count 249 140-450 10^3/uL Mean Platelet Volume 8.1 6.9-10.8 fL Neutrophils (%) (Auto) 84.7 H 37.0-80.0 % Lymphocytes (%) (Auto) 9.3 L 10.0-50.0 % Monocytes (%) (Auto) 4.9 0.0-12.0 % Eosinophils (%) (Auto) 0.5 0.0-7.0 % Basophils (%) (Auto) 0.6 0.0-2.0 % Neutrophils # (Auto) 5.7 1.6-8.6 10 ^3/uL Lymphocytes # (Auto) 0.6 0.4-5.4 10 ^3/uL Monocytes # (Auto) 0.3 0-1.3 10 ^3/uL Eosinophils # (Auto) 0 0-0.8 10 ^3/uL Basophils # (Auto) 0 0-0.2 10 ^3/uL Nucleated Red Blood Cells 0.0 % Sodium Level 135 L 136-145 mmol/L Potassium Level 7.1 *H 3.5-5.1 mmol/L Chloride Level 102 98-107 mmol/L Carbon Dioxide Level 22 20-31 mmol/L Anion Gap 11 5-15 Blood Urea Nitrogen 65 H 9-23 mg/dL Creatinine 11.34 *H 0.550-1.02 mg/dL Glomerular Filtration Rate Calc 4 >90 mL/min BUN/Creatinine Ratio 5.7 L 10.0-20.0 Serum Glucose 183 H 74-106 mg/dL Calcium Level 8.5 L 8.7-10.4 mg/dL Total Bilirubin < 0.2 L 0.2-1.0 mg/dL Aspartate Amino Transferase (AST) 27 13-40 U/L Alanine Aminotransferase (ALT) 32 7-40 U/L Alkaline Phosphatase 127 H 46-116 U/L B-Type Natriuretic Peptide 354.68 0-100 pg/mL Total Protein 7.4 5.7-8.2 g/dL Albumin 4.4 3.2-4.8 g/dL Test 07/23/24 15:54 Range/Units POC Glucose 204 H 70-106 mg/dl X-Ray, Labs, Meds, VS Comment Patient placed for admission. Time of 1ST Reevaluation: 16:30 Reevaluation 1ST: Unchanged Time of 2ND Reevaluation: 17:49 Reevaluation 2ND: Improved Patient Education/Counseling: Diagnosis, Treatment, Prognosis, Need For Follow Up Family Education/Counseling: No Family Present Departure 1 Departure Time of Disposition: 17:06 Impression: Primary Impression: Syncopal episodes Qualified Codes: R55 - Syncope and collapse Additional Impressions: Hyperkalemia End stage renal disease Dialysis patient, noncompliant Disposition: ADMITTED INPATIENT Condition: Stable Discharged With: Self Critical Care Note Critical Care Time?: No Stability Stability form required: No Heart Score Heart Score: Heart Score Response (Comments) Value History Slightly Suspicious 0 EKG Normal 0 Age 45-64 1 Risk Factors >3 or Hx ASHD 2 Troponin Normal limit 0 Total 3 GRACE MARTINEZ July 23, 2024 17:07
[2024-07-23] MEDS: ALBUTEROL SULF 2.5 MG/0.5ML(0.5%) NEB SOLN NEB ONE (17:19)
--- NOTE | 2024-07-23 17:31 | DVH ---
CT HEAD WITHOUT CONTRAST INDICATION: Positive LOC with syncopal episode EXAM DATE: 07/23/2024 04:45 PM COMPARISON: None RADIATION DOSE: CTDIvol: 56.76 mGy, DLP: 1023.33 mGy*cm PROCEDURE: CT scans of the head were obtained from the vertex to the skull base. Sagittal and coronal reconstructions were provided. All CT scans at this medical facility are performed using dose modulation techniques as appropriate t o a performed exam including the following: Automated exposure control was utilized; adjustment of th e MA and/or KV according to patient size; and use of iterative reconstruction technique. FINDINGS: There is sulcal and ventricular prominence. The brainshows normal morphology and whitley-whi te matter differentiation, without intracranial hemorrhage, extra-axial fluid collection, mass effect or acute large vessel infarct. The ventricles are normal in size. The basal cisterns are patent. The skull and visible facial bones are intact. The paranasal sinuses, mastoid air cells and middle ear c avities are well-aerated. The soft tissues of the scalp are unremarkable. IMPRESSION: No acute intracranial abnormality.
[2024-07-23] MEDS: SODIUM ZIRCONIUM CYCL 10 GM PAK PO ONE (18:04)
[2024-07-23] MEDS: SODIUM BICARB 8.4% 50Meq/50ml SYR INJ IV ONE (18:04)
[2024-07-23] MEDS: InsuLIN REG 1unit/0.01ml Soln (100units/ml) IV ONE (18:05)
[2024-07-23] MEDS: DEXTROSE (50%) 50ML SYRG IV ONE ×2 (18:05→21:49)
[2024-07-23] MEDS: CALCIUM CHL 100MG/ML 1,000 MG in D5W 5% 100 ML IV ONE (18:32)
--- NOTE | 2024-07-23 18:59 | ECG ---
[facility] Test Date: 2024-07-23 Test Time: 15:09:32 Pat Name: FIOR WEBB Department: ED Room: 0223T Gender: F Music Pastor: ROMULO : 1970 Requested By: GRACE MARTINEZ Order Number: [id number] Reading MD: Trever Hayes Measurements Intervals [place] Rate: 70 P: 52 [place]: 176 QRS: -5 QRSD: 108 T: 0 QT: 455 QTc: 491 Interpretive Statements Sinus rhythm Probable left ventricular hypertrophy Anterior Q waves, possibly due to LVH Electronically Signed On 07-24-2024 22:34:44 PDT by Trever Hayes Please click the below link to view image of tracing.
[2024-07-23 19:30] VITALS: PULSE 90; RESP 16; O2SAT 99
[2024-07-23] MEDS: DEXTROSE 50% SYRINGE 50 ML IV ONE (20:16)
[2024-07-23] MEDS ORDERED: ACETAMINOPHEN 325 MG TAB PO PRN (20:45)
[2024-07-23] MEDS ORDERED: DOCUSATE SOD 100 MG CAP PO PRN (20:45)
[2024-07-23] MEDS ORDERED: DEXTROSE (50%) 50ML SYRG IV PRN (20:45)
[2024-07-23] MEDS ORDERED: ONDANSETRON HCL 4 MG/2 ML VIAL IV PRN (20:45)
[2024-07-23] MEDS: amLODIPine BESYLATE 5 MG TAB PO ONE (21:30)
[2024-07-23] MEDS: D5W/SOD CHLO 0.9% 1,000 ML IV ONE (21:31)
[2024-07-23] MEDS: InsuLIN REG 1unit/0.01ml Soln (100units/ml) SC SCH (22:00)
[2024-07-23] MEDS: ACCU-CHEK COMFORT CURVE STRIP VI SCH (22:02)
[2024-07-23] MEDS: SODIUM CHLOR 0.9% PF (SALINE LOCK) 10ML VIAL/SYR IV SCH (22:03)
--- NOTE | 2024-07-23 22:44 | DVHHP2 ---
History of Present Illness Reason for Visit: Syncope and collapse History of Present Illness The patient is a 54-year-old female with past medical history of end-stage renal disease on hemodialysis M-W-, diabetes, and hypertension who presented to [facility] ED with complaint of dizziness. Patient reports she was g etting up to go to dialysis and felt really dizzy, collapsed, and her called 911. When EMS arrived on the scene, patient's blood sugar was 50 and was given D50 EN route to our facility ED. patient was seen and evaluated in the ED, laboratory data shows WBC 6.7, platelets 249, sodium 135, potassium 7.1, BUN 65, creatinine 11.34, glucose 183, BNP 354.68, troponin 15, calcium 8.5, blood pressure 180/101 trending down to 140/59, pulse 72, temperature 97.6 F, O2 saturation 98% on oxygen. Patient was given IV hydralazine 10 mg x 1, please see medication orders section in the computer. On my assessment, patient denied chest pain, no headache, no dizziness, no diaphoresis, currently on oxygen, no diarrhea, no nausea, no vomiting, no fever, no chills. Patient was admitted for further evaluation and medical management. Past Medical History ESRD, DM, HTN Past Surgical History Dialysis access Family History Reviewed, noncontributory to the management of this case. Past Social History The patient lives at home, denies smoking, alcohol or illicit drugs abuse. Review of Systems Constitutional: Yes: Weakness; No: Fever, Chills, Sweats, Malaise, Other Eyes: No: Pain, Vision change, Conjunctivae inflammation, Eyelid inflammation, Other, Redness ENT: No: Ear pain, Ear discharge, Nose pain, Nose discharge, Nose congestion, Mouth pain, Mouth swelling, Throat pain, Throat swelling, Other Respiratory: No: Cough, Dry, Shortness of breath, SOB with excertion, Wheezing, Hemoptysis, Pleuritic Pain, Sputum, Wheezing, Other Cardiovascular: Other (Dizzy spells); No: Chest Pain, Palpitations, Orthopnea, Paroxysmal Noc. Dyspnea, Edema, Lt Headedness Gastrointestinal: No: Nausea, Vomiting, Abdominal Pain, Diarrhea, Constipation, Melena, Hematochezia, Other Genitourinary: No Dysuria, No Frequency, No Incontinence, No Hematuria, No Retention, No Other Musculoskeletal: No: other, neck pain, shoulder pain, arm pain, back pain, hand pain, leg pain, foot pain Skin: No: Rash, Lesions, Jaundice, Bruising, Other Neurological: Other (Dizziness, fainting.); No: Weakness, Numbness, Incoordinat ion, Change in speech, Confusion, Seizures Allergies: Coded Allergies: NO KNOWN ALLERGIES (Unverified , 03/17/10) Medications Current Medications Medications Dose Ordered Sig/Iliana Route Start Time Stop Time Status Last Admin Dose Admin Aspirin 81 mg DAILY PO 07/24/24 10:00 Amlodipine Besylate 5 mg DAILY PO 07/24/24 10:00 Hydralazine HCl 10 mg Q6HP PRN IV 07/23/24 20:45 Calcium Acetate 667 mg TIDWMEALS PO 07/24/24 08:00 Sevelamer HCl 800 mg TIDWM PO 07/24/24 08:00 Multivit/Ca Carb/ B Cmplx/FA/Prenat 1 tab DAILY PO 07/24/24 10:00 Atenolol 50 mg DAILY PO 07/24/24 10:00 Diagnostic Test (Pha) 1 strip ACHS 07/23/24 22:00 07/23/24 22:02 1 STRIP Insulin Human Regular ACHS SC 07/23/24 22:00 Dextrose 50 ml UD PRN IV 07/23/24 20:45 Sodium Chloride 10 ml Q8HR IV 07/23/24 22:00 07/23/24 22:03 10 ML Acetaminophen/ Hydrocodone Bitart 1 tab Q4HP PRN PO 07/23/24 20:45 Ondansetron HCl 4 mg Q4HP PRN IV 07/23/24 20:45 Docusate Sodium 100 mg BIDPRN PRN PO 07/23/24 20:45 Acetaminophen 650 mg Q6HP PRN PO 07/23/24 20:45 Exam Vital Signs Vital Signs Date Time Temp Pulse Resp B/P (MAP) Pulse Ox O2 Delivery O2 Flow Rate FiO2 07/23/24 21:30 131/58 07/23/24 19:30 97.5 90 16 99 97.5 07/23/24 17:20 Nasal Cannula* 1 24 General Appearance: Alert, Oriented X3, Cooperative, No acute distress HEENT: Atraumatic, PERRLA, EOMI, Mucous membr. moist/pink Respiratory: Clear to auscultation, Normal air movement Cardiovascular: Regular rate, Normal S1, Normal S2, No murmurs Abdominal: Normal bowel sounds, Soft, No tenderness, No hepatospenomegaly, No masses Extremities: No clubbing, No cyanosis, No edema, Normal pulses, No tenderness/swelling Skin: No rashes, No breakdown, No significant lesion Neuro: Normal speech, Normal tone, Sensation intact, Cranial nerves 3-12 NL, Reflexes 2+, Other (Generalized weakness) Psych/Mental Status: Mental status NL, Mood NL Labs/Xrays Labs Test 07/23/24 21:53 07/23/24 20:55 07/23/24 19:05 07/23/24 16:06 Range/Units POC Glucose 197 H 70-106 mg/dl Potassium Level 5.8 *H 3.5-5.1 mmol/L Troponin I High Sensitivity 15 </=34 ng/L White Blood Count 6.7 4.4-10.8 10^3/uL Red Blood Count 4.83 4.0-5.20 10^6/uL Hemoglobin 12.5 12.2-16.2 g/dL Hematocrit 39.8 36.0-46.0 % Mean Corpuscular Volume 82.6 80.0-100.0 fL Mean Corpuscular Hemoglobin 25.9 L 28.0-32.0 pg Mean Corpuscular Hemoglobin Concent 31.4 L 32.0-36.0 g/dL Red Cell Distribution Width 18.9 H 11.8-14.3 % Platelet Count 249 140-450 10^3/uL Mean Platelet Volume 8.1 6.9-10.8 fL Neutrophils (%) (Auto) 84.7 H 37.0-80.0 % Lymphocytes (%) (Auto) 9.3 L 10.0-50.0 % Monocytes (%) (Auto) 4.9 0.0-12.0 % Eosinophils (%) (Auto) 0.5 0.0-7.0 % Basophils (%) (Auto) 0.6 0.0-2.0 % Neutrophils # (Auto) 5.7 1.6-8.6 10 ^3/uL Lymphocytes # (Auto) 0.6 0.4-5.4 10 ^3/uL Monocytes # (Auto) 0.3 0-1.3 10 ^3/uL Eosinophils # (Auto) 0 0-0.8 10 ^3/uL Basophils # (Auto) 0 0-0.2 10 ^3/uL Nucleated Red Blood Cells 0.0 % Sodium Level 135 L 136-145 mmol/L Chloride Level 102 98-107 mmol/L Carbon Dioxide Level 22 20-31 mmol/L Anion Gap 11 5-15 Blood Urea Nitrogen 65 H 9-23 mg/dL Creatinine 11.34 *H 0.550-1.02 mg/dL Glomerular Filtration Rate Calc 4 >90 mL/min BUN/Creatinine Ratio 5.7 L 10.0-20.0 Serum Glucose 183 H 74-106 mg/dL Calcium Level 8.5 L 8.7-10.4 mg/dL Total Bilirubin < 0.2 L 0.2-1.0 mg/dL Aspartate Amino Transferase (AST) 27 13-40 U/L Alanine Aminotransferase (ALT) 32 7-40 U/L Alkaline Phosphatase 127 H 46-116 U/L B-Type Natriuretic Peptide 354.68 0-100 pg/mL Total Protein 7.4 5.7-8.2 g/dL Albumin 4.4 3.2-4.8 g/dL PATIENT: FIOR WEBB ACCT: [id number] UNIT: [id number] : 1970 LOC: ER ROOM / BED: / AGE / SEX: 54 / F ADM STATUS: REG ER SERVICE [id number] ORDERING PHYSICIAN: GRACE MARTINEZ PROCEDURE(s): HWOCT - HEAD WITHOUT CONTRAST REASON: Positive LOC with syncopal episode ORDER NUMBER(s): [id number], ACCESSION NUMBER(s): [id number] CT HEAD WITHOUT CONTRAST INDICATION: Positive LOC with syncopal episode EXAM DATE: 07/23/2024 04:45 PM COMPARISON: None RADIATION DOSE: CTDIvol: 56.76 mGy, DLP: 1023.33 mGy*cm PROCEDURE: CT scans of the head were obtained from the vertex to the skull base. Sagittal and coronal reconstructions were provided. All CT scans at this medical facility are performed using dose modulation techniques as appropriate to a performed exam including the following: Automated exposure control was utilized; adjustment of the MA and/or KV according to patient size; and use of iterative reconstruction technique. FINDINGS: There is sulcal and ventricular prominence. The brainshows normal morphology and whitley-white matter differentiation, without intracranial hemorrhage, extra-axial fluid collection, mass effect or acute large vessel infarct. The ventricles are normal in size. The basal cisterns are patent. The skull and visible facial bones are intact. The paranasal sinuses, mastoid air cells and middle ear cavities are well-aerated. The soft tissues of the scalp are unremarkable. IMPRESSION: No acute intracranial abnormality. ORDERING PHYSICIAN: GRACE MARTINEZ PROCEDURE(s): CXR1 - CHEST XRAY 1 VIEW REASON: sob ORDER NUMBER(s): [id number], ACCESSION NUMBER(s): [id number] CHEST RADIOGRAPH Indication: sob Technique: Single frontal view of the chest was obtained Comparison: None FINDINGS: Lines and Tubes: Hemodialysis catheter in place in the right internal jugular vein with the tip in the right atrium. Lungs: No focal consolidation. Pleura: No effusion. No pneumothorax. Cardiomediastinal contours: Unremarkable Bones: No acute osseous abnormality. IMPRESSION: 1. Hemodialysis catheter in place through the right internal jugular vein with the tip in the right atrium. Assessment/Plan Assessment/Plan Syncopal episodes Syncope and collapse Hyperkalemia Hypoglycemia Hypertensive urgency End stage renal disease Generalized weakness Dialysis patient, noncompliant Plan 1. Admit to telemetry units 2. Breathing treatment 3. Pain control management 4. Management of fluids and electrolytes 5. Consultation for Nephrology 6. Diagnostic tests chest x-ray 7. DVT prophylaxis-on aspirin 8. Repeat labs CBC, CMP in a.m. 9. Continue with current medical management 10. Treatment plan discussed with patient and RN. Patient verbalized understanding. Plan discussed with: Patient, Other (RN) My Orders Orders - STEFANIE GOODWIN DNP Procedure Category Date Status Time Aspirin Tablet PHA 07/24/24 In Process 10:00 Amlodipine Tablet PHA 07/24/24 In Process (Norvasc Tablet) 10:00 Hydralazine Injection PHA 07/23/24 In Process (Apresoline Inject 20:45 *[facility] CONS 07/23/24 Transmitted -[place] 20:41 Calcium Acetate PHA 07/24/24 In Process Capsule (Phoslo 08:00 Sevelamer (Renagel) PHA 07/24/24 In Process 08:00 B-Complex W/ C & PHA 07/24/24 In Process Folic Tablet 10:00 Atenolol Tablet PHA 07/24/24 In Process (Tenormin Tablet) 10:00 Glucose Blood PHA 07/23/24 In Process (Accu-Chek Comfort 22:00 Insulin R (Human) PHA 07/23/24 In Process (Insulin R) 22:00 Dextrose 50% Syringe PHA 07/23/24 In Process 20:45 Allergies KELI 07/23/24 In Process 20:41 Code Status CODE 07/23/24 Transmitted 20:41 Renal DIET 07/24/24 Transmitted Standard(2gna,3gk,Lopho) Breakfast Sodium Chloride Lock PHA 07/23/24 In Process (Saline Lock Ns) 22:00 Oxygen Per Hour RT 07/23/24 Transmitted 20:41 Hydrocodone-Acet PHA 07/23/24 In Process 5325mg Tab ([place] 20:45 Ondansetron Hcl PHA 07/23/24 In Process (Zofran) 20:45 Docusate Sodium PHA 07/23/24 In Process Capsule (Colace 20:45 Complete Blood Count LAB 07/24/24 Verified 04:00 Comprehensive LAB 07/24/24 Verified Metabolic Panel 04:00 Echo 2d Mode Cardiac US 07/23/24 Logged DOP 20:41 Condition: Serious KELI 07/23/24 In Process 20:41 Acetaminophen Tablet PHA 07/23/24 In Process (Tylenol Tablet) 20:45 Bedrest With Bathroom KELI 07/23/24 In Process Privileg 20:41 Sequential KELI 07/23/24 In Process Compression Device Problem List: (1) Syncopal episodes (2) Syncope and collapse (3) End stage renal disease (4) Hyperkalemia (5) Hypertensive urgency (6) Hypoglycemia (7) Generalized weakness (8) Dialysis patient, noncompliant Date of Service: July 23, 2024 Billing Provider: STEFANIE GOODWIN DNP Common Visit Codes: [id number] INP/OBS CARE (HIGH) STEFANIE GOODWIN DNP July 23, 2024 22:44
[2024-07-23] MEDS ORDERED: NITROGLYCERIN 0.4 MG SL TAB SL PRN (22:45)
[2024-07-23] MEDS ORDERED: MORPHINE SULFATE INJ 2 MG/ml SYRG IV PRN (22:45)
[2024-07-23 22:59] VITALS: PULSE 79; RESP 18; O2SAT 97
[2024-07-23 23:09] VITALS: BP 161/64; PULSE 81; RESP 15; O2SAT 96
[2024-07-23] MEDS: hydrALAZINE HCL 20 MG/ML VL IV PRN (23:12)
[2024-07-23 23:53] VITALS: BP 167/70; PULSE 79; RESP 18; TEMP 97.6; O2SAT 97
[2024-07-23 23:56] VITALS: BP 167/70; PULSE 79; RESP 18; TEMP 97.6; O2SAT 97
[2024-07-24] VITALS (18 sets, daily range): BP systolic 141–185; BP diastolic 58–84; PULSE 54–92; RESP 16–29; TEMP 97.6–98.9; O2SAT 94–100
[2024-07-24 05:01] LABS: Basophils # (auto) 0 10 ^3/uL (0-0.2); Basophils % (auto) 0.6 % (0.0-2.0); Eosinophils # (auto) 0 10 ^3/uL (0-0.8); Eosinophils % (auto) 0.3 % (0.0-7.0); Hematocrit 40.4 % (36.0-46.0); Hemoglobin 12.8 g/dL (12.2-16.2); Lymphocytes # (auto) 0.6 10 ^3/uL (0.4-5.4); Lymphocytes % (auto) 9.9 % (10.0-50.0); Mean Corpuscular Hgb Conc. 31.7 g/dL (32.0-36.0); Mean Corpuscular Volume 82.1 fL (80.0-100.0); Monocytes # (auto) 0.4 10 ^3/uL (0-1.3); Monocytes % (auto) 5.9 % (0.0-12.0); Neutrophils # (auto) 5.2 10 ^3/uL (1.6-8.6); Neutrophils % (auto) 83.3 % (37.0-80.0); Nucleated Red Blood Cells % 0.1 %; Platelet Count (auto) 233 10^3/uL (140-450); Red Blood Cells 4.92 10^6/uL (4.0-5.20); Red Cell Distribution Width 19.3 % (11.8-14.3); White Blood Cell 6.3 10^3/uL (4.4-10.8)
[2024-07-24 06:28] LABS: Alanine Aminotransferase 28 U/L (7-40); Anion Gap 10 (5-15); BUN/Creatinine Ratio 5.7 (10.0-20.0); Calcium 8.7 mg/dL (8.7-10.4); Carbon Dioxide 24 mmol/L (20-31); Chloride 100 mmol/L (98-107); Total Protein 7.3 g/dL (5.7-8.2)
[2024-07-24 06:29] LABS: Albumin 4.3 g/dL (3.2-4.8); Alkaline Phosphatase 118 U/L (46-116); Aspartate Aminotransferase 19 U/L (13-40); Blood Urea Nitrogen 69 mg/dL (9-23); Glucose 283 mg/dL (74-106); Sodium 134 mmol/L (136-145)
[2024-07-24 06:32] LABS: Bilirubin, Total < 0.2 mg/dL (0.2-1.0); Potassium 8.4 mmol/L (3.5-5.1)
[2024-07-24 06:54] LABS: Urine Bacteria MANY /hpf (None Seen); Urine Blood 1+ /uL (Negative); Urine Clarity Turbid (Clear); Urine Color Light-Yellow (Yellow); Urine Mucus FEW (None Seen); Urine Protein, UAD 3+ (Negative); Urine Specific Gravity 1.025 (1.001-1.035); Urine Squamous Epithelial Cell MANY /hpf (<5); Urine Urobilinogen Normal (Negative); Urine WBC 72 /HPF (0-5)
[2024-07-24] MEDS: DEXTROSE (50%) 50ML SYRG IV ONE (07:00)
[2024-07-24] MEDS: SODIUM BICARB 8.4% 50Meq/50ml SYR INJ IV ONE (07:07)
[2024-07-24] MEDS: InsuLIN REG 1unit/0.01ml Soln (100units/ml) IV ONE (07:15)
[2024-07-24] MEDS: SODIUM CHL 0.9% 1000 ML BAG XX ONE (07:45)
[2024-07-24] MEDS: ALBUTEROL SULF 2.5 MG/0.5ML(0.5%) NEB SOLN NEB ONE (07:45)
[2024-07-24] MEDS: SEVELAMER 800 MG TAB PO SCH ×2 (08:01→14:29)
[2024-07-24] MEDS: CALCIUM ACETATE 667 MG CAP PO SCH (08:01)
[2024-07-24] MEDS: CALCIUM GLUC 1,000mg/50ml-NS 50 ML IV ONE (08:26)
--- NOTE | 2024-07-24 09:42 | DVHINCON2 ---
Date of service: Jul 24, 2024 Referring Physician CHRISTA Reason for Consultation ESRD History of Present Illness 54 year old female PMH ESRD , HTN, HD MWF reports syncope episode on her way to dialysis. She was found to be hypoglycemic and had potassium 7.1 Nephrology called for Dialysis Past Medical History hyperthyrioid HTN Dm2 Allergies: Coded Allergies: NO KNOWN ALLERGIES (Unverified , 03/17/10) Home Meds Active Scripts Calcium Acetate (Phosphate Bin (Calcium Acetate) 667 Mg Cap, 667 MG PO TIDWM for 30 Days, #90 CAP WITH MEALS Prov:LINDA NIELSON [employer] INTEGRITY ENGINEER 11/27/23 Methimazole (Methimazole) 5 Mg Tab, 5 MG PO BID for 30 Days, #60 TAB Prov:LINDA NIELSON [employer] INTEGRITY ENGINEER 11/27/23 Atorvastatin Calcium (ATORVASTATIN CALCIUM) 20 Mg Tab, 10 MG PO HS for 30 Days, #15 TAB 2 Refills Prov:LINDA NIELSON [employer]ODUCT INTEGRITY ENGINEER 11/27/23 Atenolol (Atenolol) 25 Mg Tab, 100 MG PO DAILY for 30 Days, #120 TAB 1 Refill Prov:LINDA NIELSON [employer] INTEGRITY ENGINEER 11/27/23 Aspirin (Aspirin Low Dose) 81 Mg Tab, 162 MG PO DAILY for 30 Days, #60 TAB 1 Refill Prov:LINDA NIELSON [employer] INTEGRITY ENGINEER 11/27/23 Amlodipine Besylate (NORVASC TABLET) 5 Mg Tb, 10 MG PO DAILY for 30 Days, #60 TAB 1 Refill Prov:LINDA NIELSON [employer]ODUCT INTEGRITY ENGINEER 11/27/23 Reported Medications Glucagon Hydrochloride (Glucagon) 1 Mg Inj, 1 MG IJ, INJ 11/14/23 Methimazole (Methimazole) 5 Mg Tab, 5 MG PO, TAB 11/14/23 Ertugliflozin l-Pyroglutamic A (Steglatro) 5 Mg Tab, 5 MG PO, TAB 11/14/23 Metformin Hydrochloride (Metformin Hcl) 500 Mg Tab 03/17/10 Lisinopril (Lisinopril) 10 Mg Tab 03/17/10 Current Medications Current Medications Medications (Trade) Dose Ordered Sig/Iliana Route PRN Reason Start Time Stop Time Status Last Admin Aspirin 81 mg DAILY PO 07/24/24 10:00 Amlodipine Besylate (Norvasc Tablet) 5 mg DAILY PO 07/24/24 10:00 Hydralazine HCl (Apresoline Injection) 10 mg Q6HP PRN IV SBP>150 07/23/24 20:45 07/23/24 23:41 Calcium Acetate (Phoslo Capsule) 667 mg TIDWMEALS PO 07/24/24 08:00 07/24/24 08:01 Sevelamer HCl (Renagel) 800 mg TIDWM PO 07/24/24 08:00 07/24/24 09:33 DC 07/24/24 08:01 Multivit/Ca Carb/ B Cmplx/FA/Prenat (Nephro-Daisy Tablet) 1 tab DAILY PO 07/24/24 10:00 Atenolol (Tenormin Tablet) 50 mg DAILY PO 07/24/24 10:00 Diagnostic Test (Pha) (Accu-Chek Comfort Curve T) 1 strip ACHS 07/23/24 22:00 07/24/24 06:05 Insulin Human Regular (InsuLIN R) ACHS SC 07/23/24 22:00 07/24/24 06:06 Dextrose 50 ml UD PRN IV Blood Sugar LESS THAN 60 07/23/24 20:45 Sodium Chloride (Saline Lock Ns) 10 ml Q8HR IV 07/23/24 22:00 07/24/24 06:05 Acetaminophen/ Hydrocodone Bitart ([place] 5/325MG Tab) 1 tab Q4HP PRN PO MODERATE PAIN (4-6 PAIN SCALE) 07/23/24 20:45 Ondansetron HCl (Zofran) 4 mg Q4HP PRN IV NAUSEA / VOMITING 07/23/24 20:45 Docusate Sodium (Colace Capsule) 100 mg BIDPRN PRN PO FOR CONSTIPATION 07/23/24 20:45 Acetaminophen (Tylenol Tablet) 650 mg Q6HP PRN PO PAIN SCALE 1-3 OR TEMP>100.4 07/23/24 20:45 Nitroglycerin (Ntrostat Sublingual) 0.4 mg Q5MINP PRN SL FOR CHEST PAIN 07/23/24 22:45 Morphine Sulfate 2 mg Q30M PRN IV FOR CHEST PAIN 07/23/24 22:45 Sevelamer HCl (Renagel) 1,600 mg TIDWM PO 07/24/24 12:00 UNV Family History: FH: breast cancer G8 MOTHER FH: kidney disease G8 FATHER Review of Systems Syncope H&P Exam Vital Signs/I&O Vital Sign Date Time Temp Pulse Resp B/P (MAP) Pulse Ox O2 Delivery O2 Flow Rate FiO2 07/24/24 08:00 79 18 97 Nasal Cannula* 2 28 07/24/24 05:00 97.9 164/58 (93) 97.9 Intake and Output 07/23/24 07/24/24 19:00 07:00 Intake Total 110 ml Output Total 0 ml Balance 110 ml Intake IV Total 110 ml Output Urine Total 0 ml Physical Exam female anxious tunnel HD catheter no edema mild rales Labs/Diagnostic Data Labs/Diagnostic Data Laboratory Tests Test 07/24/24 06:30 07/24/24 05:58 07/24/24 05:42 07/24/24 04:39 Range/Units Urine Color Light-yellow Yellow Urine Clarity Turbid H Clear Urine pH 8.0 5.0-9.0 Urine Specific [place] 1.025 1.001-1.035 Urine Protein 3+ H Negative Urine Ketones Negative Negative Urine Blood 1+ H Negative /uL Urine Nitrite Negative Negative Urine Bilirubin Negative Negative Urine Urobilinogen Normal Negative mg/dL Urine Leukocyte Esterase 1+ Negative /uL Urine RBC 5 0 - 4 /hpf Urine Microscopic WBC 72 H 0-5 /HPF Urine Squamous Epithelial Cells Many <5 /hpf Urine Bacteria Many H None Seen /hpf Urine Mucus Few None Seen Urine Glucose 3+ H Normal mg/dL Sodium Level 134 L 136-145 mmol/L Potassium Level 8.4 #*H 3.5-5.1 mmol/L Chloride Level 100 98-107 mmol/L Carbon Dioxide Level 24 20-31 mmol/L Anion Gap 10 5-15 Blood Urea Nitrogen 69 H 9-23 mg/dL Creatinine 12.09 *H 0.550-1.02 mg/dL Glomerular Filtration Rate Calc 3 >90 mL/min BUN/Creatinine Ratio 5.7 L 10.0-20.0 Serum Glucose 283 H 74-106 mg/dL Calcium Level 8.7 8.7-10.4 mg/dL Total Bilirubin < 0.2 L 0.2-1.0 mg/dL Aspartate Amino Transferase (AST) 19 13-40 U/L Alanine Aminotransferase (ALT) 28 7-40 U/L Alkaline Phosphatase 118 H 46-116 U/L Total Protein 7.3 5.7-8.2 g/dL Albumin 4.3 3.2-4.8 g/dL POC Glucose 266 H 70-106 mg/dl White Blood Count 6.3 4.4-10.8 10^3/uL Red Blood Count 4.92 4.0-5.20 10^6/uL Hemoglobin 12.8 12.2-16.2 g/dL Hematocrit 40.4 36.0-46.0 % Mean Corpuscular Volume 82.1 80.0-100.0 fL Mean Corpuscular Hemoglobin 26.0 L 28.0-32.0 pg Mean Corpuscular Hemoglobin Concent 31.7 L 32.0-36.0 g/dL Red Cell Distribution Width 19.3 H 11.8-14.3 % Platelet Count 233 140-450 10^3/uL Mean Platelet Volume 8.1 6.9-10.8 fL Neutrophils (%) (Auto) 83.3 H 37.0-80.0 % Lymphocytes (%) (Auto) 9.9 L 10.0-50.0 % Monocytes (%) (Auto) 5.9 0.0-12.0 % Eosinophils (%) (Auto) 0.3 0.0-7.0 % Basophils (%) (Auto) 0.6 0.0-2.0 % Neutrophils # (Auto) 5.2 1.6-8.6 10 ^3/uL Lymphocytes # (Auto) 0.6 0.4-5.4 10 ^3/uL Monocytes # (Auto) 0.4 0-1.3 10 ^3/uL Eosinophils # (Auto) 0 0-0.8 10 ^3/uL Basophils # (Auto) 0 0-0.2 10 ^3/uL Nucleated Red Blood Cells 0.1 % Test 07/23/24 21:53 07/23/24 20:55 07/23/24 20:54 07/23/24 20:12 Range/Units POC Glucose 197 H 145 H 25 *L 70-106 mg/dl Potassium Level 5.8 *H 3.5-5.1 mmol/L Test 07/23/24 19:05 07/23/24 17:54 07/23/24 17:06 07/23/24 16:06 Range/Units Troponin I High Sensitivity 15 16 15 </=34 ng/L POC Glucose 135 H 70-106 mg/dl White Blood Count 6.7 4.4-10.8 10^3/uL Red Blood Count 4.83 4.0-5.20 10^6/uL Hemoglobin 12.5 12.2-16.2 g/dL Hematocrit 39.8 36.0-46.0 % Mean Corpuscular Volume 82.6 80.0-100.0 fL Mean Corpuscular Hemoglobin 25.9 L 28.0-32.0 pg Mean Corpuscular Hemoglobin Concent 31.4 L 32.0-36.0 g/dL Red Cell Distribution Width 18.9 H 11.8-14.3 % Platelet Count 249 140-450 10^3/uL Mean Platelet Volume 8.1 6.9-10.8 fL Neutrophils (%) (Auto) 84.7 H 37.0-80.0 % Lymphocytes (%) (Auto) 9.3 L 10.0-50.0 % Monocytes (%) (Auto) 4.9 0.0-12.0 % Eosinophils (%) (Auto) 0.5 0.0-7.0 % Basophils (%) (Auto) 0.6 0.0-2.0 % Neutrophils # (Auto) 5.7 1.6-8.6 10 ^3/uL Lymphocytes # (Auto) 0.6 0.4-5.4 10 ^3/uL Monocytes # (Auto) 0.3 0-1.3 10 ^3/uL Eosinophils # (Auto) 0 0-0.8 10 ^3/uL Basophils # (Auto) 0 0-0.2 10 ^3/uL Nucleated Red Blood Cells 0.0 % Sodium Level 135 L 136-145 mmol/L Potassium Level 7.1 *H 3.5-5.1 mmol/L Chloride Level 102 98-107 mmol/L Carbon Dioxide Level 22 20-31 mmol/L Anion Gap 11 5-15 Blood Urea Nitrogen 65 H 9-23 mg/dL Creatinine 11.34 *H 0.550-1.02 mg/dL Glomerular Filtration Rate Calc 4 >90 mL/min BUN/Creatinine Ratio 5.7 L 10.0-20.0 Serum Glucose 183 H 74-106 mg/dL Calcium Level 8.5 L 8.7-10.4 mg/dL Total Bilirubin < 0.2 L 0.2-1.0 mg/dL Aspartate Amino Transferase (AST) 27 13-40 U/L Alanine Aminotransferase (ALT) 32 7-40 U/L Alkaline Phosphatase 127 H 46-116 U/L B-Type Natriuretic Peptide 354.68 0-100 pg/mL Total Protein 7.4 5.7-8.2 g/dL Albumin 4.4 3.2-4.8 g/dL Test 07/23/24 15:54 Range/Units POC Glucose 204 H 70-106 mg/dl Assessment 54 year old female w/ ESRD due to HTN p/w syncope found to have severe hyperkalemia and hypoglycemia ESRD HTN hyperkalemia Dm2 hyperphosphatemia RICHIE HD, hyperK meds given earlier repeat HD tomorrow resume home meds in afternoon renal diet phos binders reports she is pending outpatient vein mapping and AVG due to poor arm vessels rest of care per primary team Plan discussed with: Patient MONICA BECKWITH MD Jul 24, 2024 09:42
[2024-07-24] MEDS: B-COMPLEX W/ C & FOLIC ACID(NEPHROVITE TAB) PO SCH (10:00)
[2024-07-24] MEDS: ASPirin 81 mg TAB PO SCH (10:00)
--- NOTE | 2024-07-24 12:26 | ECG ---
[facility] Test Date: 2024-07-24 Test Time: 06:49:57 Pat Name: FIOR WEBB Department: Room: 0223T A Gender: F Pantograph Watcher: johnson : 1970 Requested By: TI FIELD Order Number: [id number] Reading MD: Trever Hayes Measurements Intervals [place] Rate: 76 P: 65 GA: 174 QRS: 32 QRSD: 108 T: 45 QT: 431 QTc: 485 Interpretive Statements Sinus rhythm Probable anteroseptal infarct, recent Lateral leads are also involved Baseline wander in lead(s) I,II,III,aVR,aVF,V4 Electronically Signed On 07-24-2024 22:55:46 PDT by Trever Hayes Please click the below link to view image of tracing.
--- NOTE | 2024-07-24 13:03 | DVHPN2 ---
Reviewed: Care Plan, H&P, Labs, Medications, Previous Orders, Radiology Changes from previous H/P or p: No Changes Eyes: No Pain, No Vision change, No Conjunctivae inflammation, No Eyelid inflammation, No Other, No Redness ENT: No Ear pain, No Ear discharge, No Nose pain, No Nose discharge, No Nose congestion, No Mouth pain, No Mouth swelling, No Throat pain, No Throat swelling, No Other Cardiovascular: No Chest Pain, No Palpitations, No Orthopnea, No Paroxysmal Noc. Dyspnea, No Edema, No Lt Headedness; Other (Dizzy spells) Respiratory: No Cough, No Dry, No Shortness of breath, No SOB with excertion, No Wheezing, No Hemoptysis, No Pleuritic Pain, No Sputum, No Other Gastrointestinal: No Nausea, No Vomiting, No Abdominal Pain, No Diarrhea, No Constipation, No Melena, No Hematochezia, No Other Genitourinary: No Dysuria, No Frequency, No Incontinence, No Hematuria, No Retention, No Other Musculoskeletal: No other, No neck pain, No shoulder pain, No arm pain, No back pain, No hand pain, No leg pain, No foot pain Skin: No Rash, No Lesions, No Jaundice, No Bruising, No Other Objective Vitals Vital Signs Date Time Temp Pulse Resp B/P (MAP) Pulse Ox O2 Delivery O2 Flow Rate FiO2 07/24/24 10:00 97 Nasal Cannula 2.0 07/24/24 10:00 28 07/24/24 09:00 97.9 79 18 185/84 (117) 97.9 Intake/Output Intake and Output 07/24/24 07:00 Intake Total 110 ml Output Total 0 ml Balance 110 ml Intake IV Total 110 ml Output Urine Total 0 ml Medications Current Medications Medications Dose Ordered Sig/Iliana Route Start Time Stop Time Status Last Admin Dose Admin Aspirin 81 mg DAILY PO 07/24/24 10:00 Amlodipine Besylate 5 mg DAILY PO 07/24/24 10:00 Hydralazine HCl 10 mg Q6HP PRN IV 07/23/24 20:45 07/23/24 23:41 10 MG Calcium Acetate 667 mg TIDWMEALS PO 07/24/24 08:00 07/24/24 08:01 667 MG Multivit/Ca Carb/ B Cmplx/FA/Prenat 1 tab DAILY PO 07/24/24 10:00 Atenolol 50 mg DAILY PO 07/24/24 10:00 Diagnostic Test (Pha) 1 strip ACHS 07/23/24 22:00 07/24/24 06:05 1 STRIP Insulin Human Regular ACHS SC 07/23/24 22:00 07/24/24 06:06 6 UNITS Dextrose 50 ml UD PRN IV 07/23/24 20:45 Sodium Chloride 10 ml Q8HR IV 07/23/24 22:00 07/24/24 06:05 10 ML Acetaminophen/ Hydrocodone Bitart 1 tab Q4HP PRN PO 07/23/24 20:45 Ondansetron HCl 4 mg Q4HP PRN IV 07/23/24 20:45 Docusate Sodium 100 mg BIDPRN PRN PO 07/23/24 20:45 Acetaminophen 650 mg Q6HP PRN PO 07/23/24 20:45 Nitroglycerin 0.4 mg Q5MINP PRN SL 07/23/24 22:45 Morphine Sulfate 2 mg Q30M PRN IV 07/23/24 22:45 Sevelamer HCl 1,600 mg TIDWM PO 07/24/24 12:00 Laboratory Results Laboratory Tests 07/24/24 04:39 07/24/24 05:58 07/24/24 10:37 Chemistry Test 07/23/24 16:06 07/24/24 05:58 Albumin 4.4 g/dL (3.2-4.8) 4.3 g/dL (3.2-4.8) Calcium Level 8.5 mg/dL (8.7-10.4) L 8.7 mg/dL (8.7-10.4) Total Protein 7.4 g/dL (5.7-8.2) 7.3 g/dL (5.7-8.2) Cardiac Markers Test 07/23/24 16:06 B-Type Natriuretic Peptide 354.68 pg/mL (0-100) LFT Test 07/23/24 16:06 07/24/24 05:58 Alanine Aminotransferase (ALT) 32 U/L (7-40) 28 U/L (7-40) Alkaline Phosphatase 127 U/L (46-116) H 118 U/L (46-116) H Aspartate Amino Transferase (AST) 27 U/L (13-40) 19 U/L (13-40) Total Bilirubin < 0.2 mg/dL (0.2-1.0) L < 0.2 mg/dL (0.2-1.0) L Urinalysis Test 07/24/24 06:30 Urine Color Light-yellow (Yellow) Urine Clarity Turbid (Clear) H Urine pH 8.0 (5.0-9.0) Urine Specific [place] 1.025 (1.001-1.035) Urine Protein 3+ (Negative) H Urine Ketones Negative (Negative) Urine Blood 1+ /uL (Negative) H Urine Nitrite Negative (Negative) Urine Bilirubin Negative (Negative) Urine Urobilinogen Normal mg/dL (Negative) Urine Leukocyte Esterase 1+ /uL (Negative) Urine RBC 5 /hpf (0 - 4) Urine Microscopic WBC 72 /HPF (0-5) H Urine Squamous Epithelial Cells Many /hpf (<5) Urine Bacteria Many /hpf (None Seen) H Urine Mucus Few (None Seen) Urine Glucose 3+ mg/dL (Normal) H Labs and/or images reviewed: Labs reviewed by me, Image(s) reviewed by me Assessment/Plan Assessment/Plan Syncopal episodes Syncope and collapse Acute Hyperkalemia: Treatment per hyperkalemia protocol Acute Hypoglycemia blood sugar 50 in the field Hypertensive urgency End stage renal disease on hemodialysis, Nephrology consult by Dr. Desir appreciated Generalized weakness Noncompliant Time Spent 70 minutes Patient is full code Advanced care planning time 20 mts Plan discussed with: Patient Date of Service: Jul 24, 2024 Billing Provider: NILAM CARRERA MD Common Visit Codes: [id number] CARE 30-74 MIN NILAM CARRERA MD Jul 24, 2024 13:03
[2024-07-24] MEDS: ATENOLOL 25 MG TAB PO SCH (13:37)
[2024-07-24] MEDS: amLODIPine BESYLATE 5 MG TAB PO SCH (13:38)
[2024-07-24] MEDS: hydrALAZINE HCL 10 MG TAB PO SCH (17:21)
[2024-07-24 18:17] LABS: Anion Gap 8 (5-15); Carbon Dioxide 31 mmol/L (20-31); Chloride 101 mmol/L (98-107); Potassium 5.1 mmol/L (3.5-5.1); Sodium 140 mmol/L (136-145)
[2024-07-24 18:18] LABS: Calcium 9.2 mg/dL (8.7-10.4)
[2024-07-24 18:23] LABS: BUN/Creatinine Ratio 3.2 (10.0-20.0); Blood Urea Nitrogen 19 mg/dL (9-23)
[2024-07-24 18:25] LABS: Glucose 168 mg/dL (74-106)
[2024-07-24] MEDS: CARVEDILOL 12.5 MG TAB PO SCH (21:27)
[2024-07-25] VITALS (7 sets, daily range): BP systolic 156–195; BP diastolic 82–87; PULSE 66–80; RESP 18–20; TEMP 97.3–98.5; O2SAT 92–100
[2024-07-25] MEDS: HYDROcodone-ACET 5/325MG TAB PO PRN (04:47)
[2024-07-25 07:38] LABS: Basophils # (auto) 0.1 10 ^3/uL (0-0.2); Eosinophils # (auto) 0.1 10 ^3/uL (0-0.8); Eosinophils % (auto) 1.4 % (0.0-7.0); Hematocrit 38.1 % (36.0-46.0); Hemoglobin 11.9 g/dL (12.2-16.2); Lymphocytes # (auto) 0.8 10 ^3/uL (0.4-5.4); Lymphocytes % (auto) 16.2 % (10.0-50.0); Mean Corpuscular Hemoglobin 25.6 pg (28.0-32.0); Mean Corpuscular Hgb Conc. 31.2 g/dL (32.0-36.0); Mean Corpuscular Volume 82.1 fL (80.0-100.0); Monocytes # (auto) 0.5 10 ^3/uL (0-1.3); Neutrophils # (auto) 3.8 10 ^3/uL (1.6-8.6); Neutrophils % (auto) 72.4 % (37.0-80.0); Nucleated Red Blood Cells % 0.2 %; Platelet Count (auto) 220 10^3/uL (140-450); Red Blood Cells 4.64 10^6/uL (4.0-5.20); Red Cell Distribution Width 19.3 % (11.8-14.3); White Blood Cell 5.2 10^3/uL (4.4-10.8)
[2024-07-25 07:56] LABS: Alanine Aminotransferase 22 U/L (7-40); Alkaline Phosphatase 107 U/L (46-116); Anion Gap 5 (5-15); Aspartate Aminotransferase 17 U/L (13-40); BUN/Creatinine Ratio 3.5 (10.0-20.0); Carbon Dioxide 30 mmol/L (20-31); Chloride 104 mmol/L (98-107); Glucose 94 mg/dL (74-106); Sodium 139 mmol/L (136-145); Total Protein 6.8 g/dL (5.7-8.2)
[2024-07-25 08:02] LABS: Bilirubin, Total 0.3 mg/dL (0.2-1.0); Blood Urea Nitrogen 25 mg/dL (9-23); Calcium 8.7 mg/dL (8.7-10.4); Phosphorus 5.3 mg/dL (2.4-5.1)
[2024-07-25 08:03] LABS: Potassium 7.2 mmol/L (3.5-5.1)
--- NOTE | 2024-07-25 08:13 | DVHSR ---
APPROVED REPORT EXAM: Two-dimensional and M-mode echocardiogram with Doppler and color Doppler. Blood Pressure: 164/58 mmHg INDICATION Elevated BNP RISK FACTORS Height: 66, Weight: 192 DIMENSIONS LVDd4.6 (3.8-5.7cm)LA (2D)4.4 (1.9-4.0cm)Aortic Root3.6 (2.0-3.7cm) LVDs3.1 (2.5-4.0cm)LA (MM) (1.9-4.0cm)Aortic Cusp Exc1.9 (1.5-2.0cm) EF (%) 62.0 (55-70%)Rt. Atrium (1.9-4.0cm)Asc. Aorta cm Mitral Valve MitralMitral Stenosis E wave1.34m/sMV Mean GR.mmHg A wave1.65m/sMV Peak GR.mmHg E/A ratio0.82D MVAcm2 DECEL [id number] 1/2 Timems Aortic Valve Aortic ValveAortic Stenosis V11.53m/Konrad Mean GR.9mmHg V22.01m/Konrad Peak GR.16mmHg LVOT Diameter2.0 (1.8-2.4cm)Doppler AVA2.39cm2 Pulmonic Valve V21.36m/s Tricuspid Valve TR Velocity2.93m/s [id number] Other Information Technically limited study due to body habitus and patient position. Patient coughing entire study. Conclusion lvef 60% by visual estimate mild to moderate LVH RV enlarged biatrial enlargement no severe valve abnormalities [facility]
--- NOTE | 2024-07-25 09:27 | DVHPN2 ---
Reviewed: Care Plan, H&P, Labs, Medications, Previous Orders, Radiology Changes from previous H/P or p: No Changes Eyes: No Pain, No Vision change, No Conjunctivae inflammation, No Eyelid inflammation, No Other, No Redness ENT: No Ear pain, No Ear discharge, No Nose pain, No Nose discharge, No Nose congestion, No Mouth pain, No Mouth swelling, No Throat pain, No Throat swelling, No Other Cardiovascular: No Chest Pain, No Palpitations, No Orthopnea, No Paroxysmal Noc. Dyspnea, No Edema, No Lt Headedness; Other (Dizzy spells) Respiratory: No Cough, No Dry, No Shortness of breath, No SOB with excertion, No Wheezing, No Hemoptysis, No Pleuritic Pain, No Sputum, No Other Gastrointestinal: No Nausea, No Vomiting, No Abdominal Pain, No Diarrhea, No Constipation, No Melena, No Hematochezia, No Other Genitourinary: No Dysuria, No Frequency, No Incontinence, No Hematuria, No Retention, No Other Musculoskeletal: No other, No neck pain, No shoulder pain, No arm pain, No back pain, No hand pain, No leg pain, No foot pain Skin: No Rash, No Lesions, No Jaundice, No Bruising, No Other Objective Vitals Vital Signs Date Time Temp Pulse Resp B/P (MAP) Pulse Ox O2 Delivery O2 Flow Rate FiO2 07/25/24 09:09 97.7 66 18 192/87 (122) 100 97.7 07/25/24 08:00 Nasal Cannula* 2 28 Intake/Output Intake and Output 07/25/24 07:00 Intake Total 1300 ml Balance 1300 ml Intake Oral 1300 ml # Voids 5 # Bowel Movements 3 Medications Current Medications Medications Dose Ordered Sig/Iliana Route Start Time Stop Time Status Last Admin Dose Admin Aspirin 81 mg DAILY PO 07/24/24 10:00 Hydralazine HCl 10 mg Q6HP PRN IV 07/23/24 20:45 07/25/24 07:49 10 MG Calcium Acetate 667 mg TIDWMEALS PO 07/24/24 08:00 07/25/24 07:51 667 MG Multivit/Ca Carb/ B Cmplx/FA/Prenat 1 tab DAILY PO 07/24/24 10:00 Diagnostic Test (Pha) 1 strip ACHS 07/23/24 22:00 07/25/24 06:58 1 STRIP Insulin Human Regular ACHS SC 07/23/24 22:00 07/24/24 17:27 3 UNITS Dextrose 50 ml UD PRN IV 07/23/24 20:45 Sodium Chloride 10 ml Q8HR IV 07/23/24 22:00 07/25/24 06:00 10 ML Acetaminophen/ Hydrocodone Bitart 1 tab Q4HP PRN PO 07/23/24 20:45 07/25/24 04:47 1 TAB Ondansetron HCl 4 mg Q4HP PRN IV 07/23/24 20:45 Docusate Sodium 100 mg BIDPRN PRN PO 07/23/24 20:45 Acetaminophen 650 mg Q6HP PRN PO 07/23/24 20:45 Nitroglycerin 0.4 mg Q5MINP PRN SL 07/23/24 22:45 Morphine Sulfate 2 mg Q30M PRN IV 07/23/24 22:45 Sevelamer HCl 1,600 mg TIDWM PO 07/24/24 12:00 07/25/24 07:51 1,600 MG Amlodipine Besylate 10 mg DAILY PO 07/25/24 10:00 Hydralazine HCl 20 mg Q6HR PO 07/24/24 16:06 07/25/24 00:27 20 MG Carvedilol 12.5 mg Q12HR PO 07/24/24 22:00 07/24/24 21:27 12.5 MG Laboratory Results Laboratory Tests 07/25/24 06:53 Chemistry Test 07/24/24 17:56 07/25/24 06:53 Calcium Level 9.2 mg/dL (8.7-10.4) 8.7 mg/dL (8.7-10.4) Albumin 4.0 g/dL (3.2-4.8) Phosphorus Level 5.3 mg/dL (2.4-5.1) H Total Protein 6.8 g/dL (5.7-8.2) LFT Test 07/25/24 06:53 Alanine Aminotransferase (ALT) 22 U/L (7-40) Alkaline Phosphatase 107 U/L (46-116) Aspartate Amino Transferase (AST) 17 U/L (13-40) Total Bilirubin 0.3 mg/dL (0.2-1.0) Urinalysis Test 07/24/24 06:30 Urine Color Light-yellow (Yellow) Urine Clarity Turbid (Clear) H Urine pH 8.0 (5.0-9.0) Urine Specific [place] 1.025 (1.001-1.035) Urine Protein 3+ (Negative) H Urine Ketones Negative (Negative) Urine Blood 1+ /uL (Negative) H Urine Nitrite Negative (Negative) Urine Bilirubin Negative (Negative) Urine Urobilinogen Normal mg/dL (Negative) Urine Leukocyte Esterase 1+ /uL (Negative) Urine RBC 5 /hpf (0 - 4) Urine Microscopic WBC 72 /HPF (0-5) H Urine Squamous Epithelial Cells Many /hpf (<5) Urine Bacteria Many /hpf (None Seen) H Urine Mucus Few (None Seen) Urine Glucose 3+ mg/dL (Normal) H Microbiology Microbiology Date/Time Source Procedure Growth Status 07/24/24 00:40 Nose MRSA Screen - Final Complete Labs and/or images reviewed: Labs reviewed by me, Image(s) reviewed by me Assessment/Plan Assessment/Plan Syncope and collapse, ejection fraction 60 % CT head negative Dialysis disequilibrium syndrome Acute Hyperkalemia: Treatment per hyperkalemia protocol Acute Hypoglycemia blood sugar 50 in the field Hypertensive urgency End stage renal disease on hemodialysis, patient received dialysis Generalized weakness Noncompliant Time Spent 50 minutes Patient is full code Advanced care planning time 20 mts Will DC home after dialysis today and plan is acceptable with the pt. Plan discussed with: Patient My Orders Orders - NILAM CARRERA MD Procedure Category Date Status Time Complete Blood Count LAB 07/27/24 Verified 08:00 Complete Blood Count LAB 07/26/24 Verified 08:00 Comprehensive LAB 07/26/24 Verified Metabolic Panel 08:00 Comprehensive LAB 07/27/24 Verified Metabolic Panel 08:00 Date of Service: Jul 25, 2024 Billing Provider: NILAM CARRERA MD Common Visit Codes: [id number] INP/OBS CARE(HIGH) NILAM CARRERA MD Jul 25, 2024 09:27
--- NOTE | 2024-07-25 09:37 | DVHDS2 ---
Discharge Summary Date of Admission July 23, 2024 at 22:43 Date of Discharge: Jul 25, 2024 Admitting Diagnosis Syncope Wounds: None Labs/Diagnostic Data: Laboratory Results Test 07/25/24 06:53 07/25/24 06:08 07/24/24 06:30 07/24/24 04:39 White Blood Count 5.2 10^3/uL (4.4-10.8) Red Blood Count 4.64 10^6/uL (4.0-5.20) Hemoglobin 11.9 g/dL (12.2-16.2) Hematocrit 38.1 % (36.0-46.0) Mean Corpuscular Volume 82.1 fL (80.0-100.0) Mean Corpuscular Hemoglobin 25.6 pg (28.0-32.0) Mean Corpuscular Hemoglobin Concent 31.2 g/dL (32.0-36.0) Red Cell Distribution Width 19.3 % (11.8-14.3) Platelet Count 220 10^3/uL (140-450) Mean Platelet Volume 8.1 fL (6.9-10.8) Neutrophils (%) (Auto) 72.4 % (37.0-80.0) Lymphocytes (%) (Auto) 16.2 % (10.0-50.0) Monocytes (%) (Auto) 9.0 % (0.0-12.0) Eosinophils (%) (Auto) 1.4 % (0.0-7.0) Basophils (%) (Auto) 1.0 % (0.0-2.0) Neutrophils # (Auto) 3.8 10 ^3/uL (1.6-8.6) Lymphocytes # (Auto) 0.8 10 ^3/uL (0.4-5.4) Monocytes # (Auto) 0.5 10 ^3/uL (0-1.3) Eosinophils # (Auto) 0.1 10 ^3/uL (0-0.8) Basophils # (Auto) 0.1 10 ^3/uL (0-0.2) Nucleated Red Blood Cells 0.2 % Sodium Level 139 mmol/L (136-145) Potassium Level 7.2 mmol/L (3.5-5.1) Chloride Level 104 mmol/L (98-107) Carbon Dioxide Level 30 mmol/L (20-31) Anion Gap 5 (5-15) Blood Urea Nitrogen 25 mg/dL (9-23) Creatinine 7.19 mg/dL (0.550-1.02) Glomerular Filtration Rate Calc 6 mL/min (>90) BUN/Creatinine Ratio 3.5 (10.0-20.0) Serum Glucose 94 mg/dL (74-106) Calcium Level 8.7 mg/dL (8.7-10.4) Phosphorus Level 5.3 mg/dL (2.4-5.1) Total Bilirubin 0.3 mg/dL (0.2-1.0) Aspartate Amino Transferase (AST) 17 U/L (13-40) Alanine Aminotransferase (ALT) 22 U/L (7-40) Alkaline Phosphatase 107 U/L (46-116) Total Protein 6.8 g/dL (5.7-8.2) Albumin 4.0 g/dL (3.2-4.8) POC Glucose 112 mg/dl (70-106) Urine Color Light-yellow (Yellow) Urine Clarity Turbid (Clear) Urine pH 8.0 (5.0-9.0) Urine Specific [place] 1.025 (1.001-1.035) Urine Protein 3+ (Negative) Urine Ketones Negative (Negative) Urine Blood 1+ /uL (Negative) Urine Nitrite Negative (Negative) Urine Bilirubin Negative (Negative) Urine Urobilinogen Normal mg/dL (Negative) Urine Leukocyte Esterase 1+ /uL (Negative) Urine RBC 5 /hpf (0 - 4) Urine Microscopic WBC 72 /HPF (0-5) Urine Squamous Epithelial Cells Many /hpf (<5) Urine Bacteria Many /hpf (None Seen) Urine Mucus Few (None Seen) Urine Glucose 3+ mg/dL (Normal) Test 07/23/24 19:05 07/23/24 16:06 Troponin I High Sensitivity 15 ng/L (</=34) B-Type Natriuretic Peptide 354.68 pg/mL (0-100) Other Laboratory Tests 07/25/24 06:53 Brief Hx & Hospital Course: 54-year-old female ESRD on hemodialysis hypotension came in for syncopal episode. CT head negative echo 60 percent ejection fraction acute hyperkalemia secondary to ESRD resolved after dialysis blood sugar was low 50 in the field which has improved hypertension controlled at the time of discharge patient is asymptomatic with a stable vital signs alert and awake and wants to go home being discharged home after dialysis today. Will check ABG on room air to see if she qualifies for home oxygen Consults/Reason for consult Nephrology Operations or Procedures Hemodialysis CT head Condition at Discharge: Fair Final Diagnosis/Problems List Syncope and collapse, ejection fraction 60 % CT head negative Dialysis disequilibrium syndrome Acute Hyperkalemia: Treatment per hyperkalemia protocol Acute Hypoglycemia blood sugar 50 in the field Hypertensive urgency End stage renal disease on hemodialysis, patient received dialysis Generalized weakness Noncompliant Discharge Disposition: Home Discharge Instruct/Medications Diet: Renal Activity: Light activity Follow Up/Referral: Follow up with the primary Dr Follow up with the Nephrology for dialysis Continue all your previous home medications Medications: None 35 (Time taken for discharge summary 35 minutes) Discharge Statement: "Patient was advised to return to the ER or call 911 if any headaches, dizziness, shortness of breath, chest pain, abdominal pain, bleeding, fevers, or worsening of medical condition. Patient was counseled about treatment plan, medications, possible side effects, patientverbalized understanding. All questions were answered to the best of my ability. This discharge took greater then 30 minutes in planning, reviewing documentation, counseling the patient, and discussing with other team members." ASSESSMENT ASSESSMENT Hospital Course Uneventful Assessment Syncope and collapse, ejection fraction 60 % CT head negative Dialysis disequilibrium syndrome Acute Hyperkalemia: Treatment per hyperkalemia protocol Acute Hypoglycemia blood sugar 50 in the field Hypertensive urgency End stage renal disease on hemodialysis, patient received dialysis Generalized weakness Noncompliant Date of Service: Jul 25, 2024 Billing Provider: NILAM CARRERA MD Common Visit Codes: 08682-KYW/OBS DISCH DAY >30min NILAM CARRERA MD Jul 25, 2024 09:37
--- NOTE | 2024-07-25 11:42 | DVHPN2 ---
Progress Note Date Seen: Jul 25, 2024 Medical Necessity Reason Pt with a Central, PICC or Fol: No Subjective Patient reports: No new complaints Other Systems: Patient seen and examined by myself today in follow-up Patient examined hemodialysis, blood pressure stable Objective vital signs Vital Sign Date Time Temp Pulse Resp B/P (MAP) Pulse Ox O2 Delivery O2 Flow Rate FiO2 07/25/24 10:25 97.7 66 18 100 07/25/24 10:00 Nasal Cannula* 2 28 07/25/24 09:09 192/87 (122) Total Intake and Output 07/24/24 07/24/24 07/25/24 15:00 23:00 07:00 Intake Total 800 ml 500 ml Balance 800 ml 500 ml medications Current Medications Medications Dose Ordered Sig/Iliana Route Start Time Stop Time Status Last Admin Dose Admin Aspirin 81 mg DAILY PO 07/24/24 10:00 Hydralazine HCl 10 mg Q6HP PRN IV 07/23/24 20:45 07/25/24 07:49 10 MG Calcium Acetate 667 mg TIDWMEALS PO 07/24/24 08:00 07/25/24 07:51 667 MG Multivit/Ca Carb/ B Cmplx/FA/Prenat 1 tab DAILY PO 07/24/24 10:00 Diagnostic Test (Pha) 1 strip ACHS 07/23/24 22:00 07/25/24 06:58 1 STRIP Insulin Human Regular ACHS SC 07/23/24 22:00 07/24/24 17:27 3 UNITS Dextrose 50 ml UD PRN IV 07/23/24 20:45 Sodium Chloride 10 ml Q8HR IV 07/23/24 22:00 07/25/24 06:00 10 ML Acetaminophen/ Hydrocodone Bitart 1 tab Q4HP PRN PO 07/23/24 20:45 07/25/24 04:47 1 TAB Ondansetron HCl 4 mg Q4HP PRN IV 07/23/24 20:45 Docusate Sodium 100 mg BIDPRN PRN PO 07/23/24 20:45 Acetaminophen 650 mg Q6HP PRN PO 07/23/24 20:45 Nitroglycerin 0.4 mg Q5MINP PRN SL 07/23/24 22:45 Morphine Sulfate 2 mg Q30M PRN IV 07/23/24 22:45 Sevelamer HCl 1,600 mg TIDWM PO 07/24/24 12:00 07/25/24 07:51 1,600 MG Amlodipine Besylate 10 mg DAILY PO 07/25/24 10:00 Hydralazine HCl 20 mg Q6HR PO 07/24/24 16:06 07/25/24 00:27 20 MG Carvedilol 12.5 mg Q12HR PO 07/24/24 22:00 07/24/24 21:27 12.5 MG Examination: LUNGS:Normal, CVS:Normal, MSK:Normal laboratory and microbiology Laboratory Tests 07/25/24 06:53 Test 07/25/24 06:53 Range/Units Serum Glucose 94 74-106 mg/dL Microbiology Date/Time Source Procedure Growth Status 07/24/24 00:40 Nose MRSA Screen - Final Complete Problem List/Assessment/Plan Problem List/Assessment/Plan ESRD on hemodialysis HTN hyperkalemia due to dietary indiscretion Dm2 Status post hypoglycemia Anemia of chronic kidney disease, well compensated Recommendations Continue with UF to 3 L as tolerated Lokelma 10 g p.o. daily Resume home medication Low K renal diet Insulin sliding scale Blood pressure control We will continue to follow up Plan discussed with: Patient My Orders My Orders Orders - KENNEY BORGES MD Procedure Category Date Status Time Hemodialysis Orders ORDERS 07/25/24 Transmitted 10:23 Renal Specific DIET 07/25/24 Transmitted Diet(Renal) Lunch KENNEY BORGES MD Jul 25, 2024 11:42
[2024-07-25 12:17] LABS: Hepatitis A Ab IgM Negative; Hepatitis B Core IgM Negative (Negative); Hepatitis B Surface Antigen Negative (Negative); Hepatitis C Antibody Negative (Negative)
[2024-07-25] MEDS: SODIUM ZIRCONIUM CYCL 10 GM PAK PO ONE (15:15)
[2024-07-25] MEDS: amLODIPine BESYLATE 5 MG TAB PO SCH (16:31)
[2024-07-25] MEDS: SODIUM CHL 0.9% 1000 ML BAG XX ONE (17:59)
== END 2024-07-25 19:52 | disposition home or self-care (01) | DRG 640 ==
LOC: EDBD 14:53 → ER 15:02 → OVERFLOW 22:43 → TELE-CENTR 23:52
PROVIDERS: ADMIT Family Medicine; ATTEND Family Medicine
PROC: 5A09357 Assistance with Respiratory Ventilation, Less than 24 Consecutive Hours, Continuous Positive Airway Pressure (ICD-10-PCS; principal; 2024-07-24)
PROC: 5A1D70Z Performance of Urinary Filtration, Intermittent, Less than 6 Hours Per Day (ICD-10-PCS; 2024-07-25)
DX: E87.5 Hyperkalemia (principal); N18.6 End stage renal disease; I12.0 Hypertensive chronic kidney disease with stage 5 chronic kidney disease or end stage renal disease; E11.649 Type 2 diabetes mellitus with hypoglycemia without coma; I16.0 Hypertensive urgency; E11.22 Type 2 diabetes mellitus with diabetic chronic kidney disease; D63.1 Anemia in chronic kidney disease; F41.9 Anxiety disorder, unspecified; I95.3 Hypotension of hemodialysis; E87.8 Other disorders of electrolyte and fluid balance, not elsewhere classified; E83.39 Other disorders of phosphorus metabolism; Z79.82 Long term (current) use of aspirin; Z79.899 Other long term (current) drug therapy; Z91.158 Patient's noncompliance with renal dialysis for other reason; Z99.2 Dependence on renal dialysis; Z80.3 Family history of malignant neoplasm of breast; Z79.84 Long term (current) use of oral hypoglycemic drugs
CPT/HCPCS: 36415; 70450; 71045; 80048; 80053; 80074; 81001; 82962; 83880; 83970; 84100; 84132; 84484; 85025; 87081; 90935; 93005; 93306; 94640; 94660; 96365; 96375; G0378; J1642; J1815; J7060